=== PATIENT | female | born 1960 | race Caucasian/White ===

== ENCOUNTER 2022-07-19 00:25 | Outpatient (CLI) | payer OTHER, SELFPAY ==
--- NOTE | 2022-07-19 07:30 | DI.MAMMO_ITS ---
Exam(s) MAMMO SCREENING EXAM: MAMMO SCREENING CLINICAL HISTORY: screening TECHNIQUE: Bilateral full field digital CC and MLO mammographic images were obtained with 3D tomosyn thesis and utilizing computer aided detection (CAD). COMPARISON: Available for comparison. FINDINGS: Masses/Architectural Distortion: The lobulated nodule in the upper outer quadrant of the right breast appears stable. It has an appearance suggestive of an intraparenchymal lymph node. No suspicious m asses are seen. The tiny nodular density in the outer left breast appears stable. Microcalcifications: No suspicious pleomorphic-type are seen. Stable coarse calcification is seen in the right breast. Skin Thickening/Nipple Retraction: None. IMPRESSION: 1. No significant interval change with no specific features of malignancy noted. 2. Unless there is more urgent need, screening mammography is recommended, as per [employer] [place] [employer] guidelines. BI-RADS Category 2 - Benign Findings Breast Density - Category B - Scattered areas of fibroglandular density Breast density category C or D implies that the patient has dense breast tissue. Dense breast tissue is very common and is not abnormal but dense breast tissue can make it harder to find cancer on a ma mmogram. Also, dense breast tissue may increase their breast cancer risk. This information about the result of the mammogram report was provided to the patient to raise their awareness. Use this report when you speak with the patient about their risks for breast cancer, which includes their family hist ory. At that time, you may recommend for more screening tests (Ultrasound or MRI) as they might be us eful based on their risk. A negative radiographic report should not delay biopsy if a dominant or clinically suspicious mass is present. Up to ten percent of cancers are not identified on mammography. A negative report may reinforce clinical impression. Adenosis and dense breasts may obscure an underlying neoplasm. False positive reports average 6 to 10%. Patient will receive a letter notifying them of these results.
== END 2022-07-19 00:45 ==
LOC: DI 00:26
PROVIDERS: Visit Provider Obstetrics & Gynecology
DX: Z12.31 Encounter for screening mammogram for malignant neoplasm of breast (principal)
CPT/HCPCS: 77063; 77067

== ENCOUNTER → 2023-07-21 03:00 | Outpatient (CLI) | payer BC, SELFPAY ==
--- NOTE | 2023-07-21 07:45 | DI.MAMMO_ITS ---
Exam(s) MAMMO SCREENING EXAM: MAMMO SCREENING CLINICAL HISTORY: screening,z12.31 TECHNIQUE: Mammograms were interpreted according to the usual protocol including computer analysis w [employer] CAD system, tomosynthesis and C-view imaging. COMPARISON: 2019 through 2022 FINDINGS: The breasts are composed of mainly fatty density , Breast Density category A. No suspicious masses or suspicious microcalcifications are seen. No skin thickening or abnormal axillary lymph nodes are seen. There has been no significant change from prior exams. IMPRESSION: BI-RADS Category 1, Negative mammogram Yearly screening mammography is recommended. Breast Density - Category A, fatty density. A negative radiographic report should not delay biopsy if a dominant or clinically suspicious mass is present. Up to ten percent of cancers are not identified on mammography. A negative report may reinforce clinical impression. Adenosis and dense breasts may obscure an underlying neoplasm. False positive reports average 6 to 10%. Patient will receive a letter notifying them of these results.
== END ==
PROVIDERS: Visit Provider Obstetrics & Gynecology
DX: Z12.31 Encounter for screening mammogram for malignant neoplasm of breast (principal)
CPT/HCPCS: 77063; 77067

== ENCOUNTER 2023-10-15 14:53 | Outpatient (REF) | payer BC, SELFPAY ==
[2023-10-15 17:16] LABS: Anion Gap 9.5 mmol/L (3-11); BUN 12 mg/dL (7-18); CO2 26.5 mmol/L (21.0-32.0); Calcium 9.3 mg/dL (8.5-10.1); Chloride 105 mmol/L (98-107); Cholesterol 184 mg/dL (<200); Glucose 93 mg/dL (74-106); Potassium 4.8 mmol/L (3.5-5.1); Sodium 141 mmol/L (136-145); TSH 2.55 uIU/Ml (0.36-3.74); Triglyceride 51 mg/dL (<150)
[2023-10-15 17:53] LABS: CREATININE 0.9 mg/dL (0.55-1.02); Calculated LDL 118 mg/dL (<100); Estimated GFR 73.19 (mL/min/1.73m2); HDL Cholesterol 56 mg/dL (40-60)
== END 2023-10-15 14:54 | disposition home or self-care (01) ==
LOC: NCHCN 14:53
PROVIDERS: Visit Provider Nurse Practitioner Family
DX: E78.5 Hyperlipidemia, unspecified (principal); F31.9 Bipolar disorder, unspecified
CPT/HCPCS: 80048; 80061; 84443

== ENCOUNTER 2024-05-24 08:50 | Outpatient (REF) | payer BC, SELFPAY ==
--- NOTE | 2024-05-24 08:50 | PAPFT_PTH ---
PATIENT: Billie Apodaca LOC: [facility] U#:[id number] AGE/SX: 63/F ROOM: RE05/24/[address]: Laura Fernandez MD : 1960 BED: DIS: 05/24/2024 SPEC #: [id number] RECD: 05/24/24 13:08 STATUS: SALLIE REQ #: [id number] FRANK: 05/24/24 08:[address]: Laura Fernandez DEPT: [facility] Cytology RECD BY: Nika Olivera ENTERED: 05/24/24 13:08 SP TYPE: PAPFT OTHR DR: Unknown,Unknown Tissues: 1 - CX/ENDOCX FOR PAP SMEARS Procedures: PAP THIN PREP/[facility] Screening HPV DNA PROBE Comments: [id number] (HPV 16 & 18/45)
== END 2024-05-24 08:51 | disposition home or self-care (01) ==
LOC: LBN 08:50
PROVIDERS: Visit Provider Obstetrics & Gynecology
DX: Z12.31 Encounter for screening mammogram for malignant neoplasm of breast (principal); Z12.4 Encounter for screening for malignant neoplasm of cervix; Z84.81 Family history of carrier of genetic disease; N95.2 Postmenopausal atrophic vaginitis
CPT/HCPCS: 88142; 87624

== ENCOUNTER 2024-07-18 07:33 | Observation (INO) | payer BC, SELFPAY ==
[2024-07-18] VITALS (17 sets, daily range): BP systolic 101–136; BP diastolic 57–75; PULSE 69–85; RESP 16–18; TEMP 36.6–37.8; O2SAT 93–99
--- NOTE | 2024-07-18 07:45 | DI.CT_ITS ---
Exam(s) CT ABDOMEN PELVIS W EXAM: CT ABDOMEN PELVIS W CLINICAL HISTORY: fever, lower abdominal pain. TECHNIQUE: Imaging Protocol: Axial computed tomography images with coronal and sagittal reformatted images were created and reviewed CONTRAST MATERIAL: Intravenous: Omnipaque 350 Contrast volume:75 ml Oral: yes no COMPARISON: No exams were available for comparison FINDINGS: ABDOMEN and PELVIS: Lung Bases: No acute findings. Liver: Normal density. No suspicious mass. Gallbladder and biliary tract: Cholecystectomy. No biliary dilation. Pancreas: Normal density. No abnormal calcifications or inflammatory process. No evidence of mass. Spleen: Normal. Kidneys: Normal size, contour and axis. No radiodense stones. No obstructive uropathy. No suspicious masses seen. Adrenal glands: No masses seen. Vasculature: Abdominal aorta non-dilated. Soft tissues: Unremarkable. Bladder: Nearly empty. No gross wall thickening. No calculi.No focal mass. Bowel: Sigmoid diverticulosis. Wall thickening and inflammation in the surrounding fat consistent wi th diverticulitis. Focal area of low density in the wall of the sigmoid which could represent develo ping intramural abscess. No evidence of perforation or extra colonic abscess. No obstruction. Stacy endix normal. Peritoneal cavity: No ascites. No focal collection.No free air. Bones: Unremarkable for age. Reproductive organs: Unremarkable. Lymph nodes: No pathologically enlarged lymph nodes. IMPRESSION:: Sigmoid diverticulitis. Focal area of wall thickening which could represent developing intramural abscess. RADIATION DOSE DELIVERED: Total DLP DATA REPOSITORY: All CT scans at this facility are submitted to the National Radiology Data Registry (NRDR) Dose Index Registry (DIR) with the [employer] (ACR). RADIATION OPTIMIZATION: All CT scans at this facility use at least one of these dose optimization te chniques: automated exposure control; mA and/or kV adjustment per patient size (includes targeted exa ms where dose is matched to clinical indication); or iterative reconstruction.
--- NOTE | 2024-07-18 07:45 | DI.RAD_ITS ---
Exam(s) XR CHEST 2V PA LATERAL EXAM: XR CHEST 2V PA LATERAL CLINICAL HISTORY: cough, fever TECHNIQUE: 2D digital imaging was performed. Two views. COMPARISON: No exams were available for comparison FINDINGS: HEART: Normal size. Aorta: Not dilated. PULMONARY VASCULATURE: Normal. MEDIASTINUM: Unremarkable. LUNGS: Clear. PLEURAL SPACE: No pleural effusion or pneumothorax. BONE:Unremarkable for age. SOFT TISSUES: Unremarkable. IMPRESSION: No acute abnormality. DATA REPOSITORY: RADIATION DOSE DELIVERED:
--- NOTE | 2024-07-18 07:53 | ED.GENADUL_ITS ---
Discharge Plan Disposition Patient Disposition: Admit to [facility] Condition: Stable Discharge Details Chief Complaint: Abd Prob Clinical Impression: Diverticulitis, Intra-abdominal abscess Admit Date/Time: 07/18/24 09:29 Admit Provider: Shant Bowen Attending Provider: Shant Bowen Primary Care Provider: WALTER SINGH ED Provider: Serafin Vanegas Discharge Data Discharge Date/Time-TO BE ENTERED AT DEPARTURE: 07/18/24 10:19 HPI General Mode of arrival: ambulatory . Date/Time Provider Initiated Documentation: 07/18/24 07:34 . Limitations to Documentation: no limitations . Information obtained by: patient . History of Present Illness 63 year old F presents to the emergency department with the chief complaint of fever, abdominal pain, described as moderate, Quality is described as sharp, and is localized to the abdomen. Patient reports no radiation. Patient started experiencing this day(s) (2) and it has been intermittent. No relieving factors improve symptom(s), No exacerbating factors reported . Patient notes nausea/vomiting. Patient did receive the following treatments prior to arrival, none Related Data Home Medications ?Medication ?Instructions ?Recorded ?Confirmed lamotrigine 200 mg tablet 200 mg PO DAILY 07/02/22 07/18/24 (Lamictal) estradiol 10 mcg vaginal tablet 10 mcg vaginal DAILY #30 tabs 07/09/23 07/18/24 (Vagifem) estradiol 0.01% (0.1 mg/gram) 0.25 g vaginal DAILY #42.5 grams 08/11/23 07/18/24 vaginal cream lisinopril 10 mg tablet 10 mg PO DAILY 08/11/23 07/18/24 lorazepam 0.5 mg tablet 0.5 mg PO DAILY PRN 08/11/23 07/18/24 trazodone 50 mg tablet 50 mg PO QHS PRN 08/11/23 07/18/24 propranolol 10 mg tablet 10 mg PO BID PRN 05/24/24 07/18/24 bupropion HCl 150 mg 24 hr tablet, 150 mg PO DAILY 07/18/24 07/18/24 extended release Previous Rx's ?Medication ?Instructions ?Recorded estradiol 10 mcg vaginal tablet 10 mcg vaginal DAILY #30 tabs 07/09/23 (Vagifem) estradiol 0.01% (0.1 mg/gram) 0.25 g vaginal DAILY #42.5 grams 08/11/23 vaginal cream Allergies Allergy/AdvReac Type Severity Reaction Status Date / Time No Known Allergies Allergy Verified 05/24/24 08:13 General Stated Complaint: Abd Prob JUNIOR: 3 Review of Systems All systems reviewed & are unremarkable except as noted in HPI and below Constitutional Constitutional: Reports chills, Reports fever(s) and Denies weakness Cardiovascular Cardiovascular: Denies chest pain and Denies dyspnea Respiratory Respiratory: Denies cough and Denies dyspnea Gastrointestinal Gastrointestinal: Reports abdominal pain, Reports nausea and Reports vomiting Genitourinary Genitourinary: Denies dysuria Neurologic Neurologic: Denies weakness Exam Const General: no acute distress Orientation: alert HENMT Head: normal to inspection Ears: external ears normal General nose exam: external nose normal Mouth: moist mucous membranes Eyes General: appearance normal, both eyes and all related structures Neck Neck: normal visual inspection Resp Effort & Inspection: normal respiratory effort and able to speak in complete sentences Auscultation: clear to auscultation bilaterally Cardio Jugular venous pressure: no JVD Rate: regular rate Heart Sounds: no murmurs GI Palpation: soft and tender Skin General skin exam: no rashes or lesions noted Neuro General: patient alert and patient oriented x3 Extrem General: normal to inspection Psych Mental Status: mental status grossly normal Course Vital Signs Vital signs: Vital Signs Temperature 37.8 C H 07/18/24 07:37 Pulse 85 07/18/24 07:37 Respiratory Rate 18 07/18/24 07:37 Blood Pressure 136/75 07/18/24 07:37 Pulse Oximetry 98 07/18/24 07:37 Temperature 37.8 C H 07/18/24 07:37 Temperature Source Tympanic 07/18/24 07:37 Pulse 85 07/18/24 07:37 Respiratory Rate 18 07/18/24 07:37 Blood Pressure 136/75 07/18/24 07:37 Blood Pressure Position Supine 07/18/24 07:37 Pulse Oximetry 98 07/18/24 07:37 Oxygen Delivery Method Room Air 07/18/24 07:37 Oxygen Flow Rate 0 07/18/24 07:37 Medical Decision Making 63-year-old female states she has had 2 C-sections and a prior cholecystectomy comes in with 2 days of fevers intermittently to 101 along with abdominal pain and nausea vomiting. She denies any chest pain, does note a dry cough. No rashes. No IV drug use. She is well-appearing on exam and is noted be febrile here. She has tenderness in the left lower and right lower quadrant, no upper abdominal tenderness. Given her fever and nausea vomiting and abdominal pain concern for diverticulitis, will check CBC CMP and UA and also CT abdomen pelvis along with a chest x-ray given her cough. CT shows likely diverticulitis of the sigmoid colon but also likely 2 cm intramural abscess. Zosyn ordered. Patient hemodynamically stable. Discussed with Dr. Bowen from general surgery who will admit the patient for further management Differential Diagnosis Differential Diagnosis: Diverticulitis, colitis, influenza Imaging Data Radiologic Study: Attestation: I personally reviewed and interpreted this imaging study as follows: Imaging: CT Scan Radiologist's impression: IMPRESSION: 1. Inflammatory change adjacent to the sigmoid colon in the pelvis. Consider diverticulitis, epiploic appendagitis. Intramural abscess not excluded as described above. 2. Fluid in nondilated small and large bowel, nonspecific but suggestive of mild inflammation. 3. Additional findings as above. Quality:SDOH Health Related Social Needs: Health related social needs housing instability, house d, with risk of homelessness (Z59.811), problems related to housing/economic circumstances (Z59.89) PFSH All Active Problems (Updated 07/18/24 @ 14:45 by Serafin Vanegas MD) Intra-abdominal abscess (Acute) Diverticulitis (Chronic) Medical History Family history of BRCA gene mutation Pt has tested negative Perimenopausal atrophic vaginitis Bipolar 2 disorder Anxiety Depression Surgical History H/O section 1991 History of cholecystectomy H/O tubal ligation Family History Paternal Aunt Breast cancer Father Colon cancer Social History Smoking/Tobacco Use Status: Never Smoking risk assessment performed?: Yes Alcohol Intake: never Drug use: Never Substance use type: does not use Household members: spouse Housing: house Number of Children: 2 Education Level: college 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 Date GA/Weeks # Preg Succ Route Wgt Sex Labor Lgth Anesth esia Location Prov Complic Unknown 40 No Yes 3628.739 g Female [facility], [place] Unknown 40 No Yes 3175.147 g Male [place], [place] Delivery Date: Last Updated by: Divina Haas Born 1979 Delivery Date: Last Updated by: Divina Alvarez Born in 1989
--- OUTSIDE RECORDS SUMMARY | 2024-07-18 08:08 | XMS_ITS | Referral Summary ---
Author Organization [facility] Address [address] [place] [address] Care Team Providers Care Lathe Scalper Operator Name Role Phone Unavailable Primary Care Provider Unavailabl e Encounters Date Type Department Care Team Description 05/25/2024 Lab Requisition [facility] Pathology & Laboratory Medicine - [facility] [address] [place] [address] Laura Fernandez MD Encounter for other general examination from Last 3 Months Social History Tobacco Use Types Packs/Day Years Used Date Smoking Tobacco: Never Assessed Comments Unknown Sex and Gender Information Value Date Recorded Sex Assigned at Not on file Legal Sex Female 9:16 EST Gender Identity Not on file Sexual Orientation Not on file Plan of Treatment Not on file Procedures Procedure Name Priority Date/Time Associated Diagnosis Comments PAP TEST Today 05/24/2024 8:50 EST Encounter for other general examination HPV DNA DETECTION WITH GENOTYPING, PCR Today 05/24/2024 8:50 EST Encounter for other general examination from Last 3 Months Results * PAP TEST (05/24/2024 8:50 EST) Specimens A. Cervix and/or Endocervix , ThinPrep Imaging System with Manual Evaluation 06/02/2024 14:55 [facility] Specimen Adequacy Satisfactory for Evaluation - transformation zone component present 06/02/2024 14:55 [facility] General Categorization Negative for intraepithelial lesion or malignancy 06/02/2024 14:55 [facility] Attestation . 06/02/2024 14:55 [facility] at 1455 Clinical History See below 06/02/20 14:55 [facility] Performing Lab [facility] 06/02/2024 14:55 [facility] Scanned Images 06/02/2024 14:55 [facility] HPV High Risk type 16, PCR Negative 06/02/2024 14:55 [facility] HPV High Risk type 18, PCR Negative 06/02/2024 14:55 [facility] HPV Other High Risk Types, PCR Negative The following Other High Risk HPV types were not detected: 31,33, 35, 39, 45, 51, 52, 56, 58, 59, 66 and 68. 06/02/2024 14:55 EST [facility] Pap Test CERVIX UTERI STRUCTURE / Unknown 05/24/2024 8:50 EST 05/25/2024 9:24 EST us Laura Fernandez MD PATHOLOGY ORDERABLES Final R esult Performing Organization Address [facility]/ZIP Co de Phone Number [facility] [address] [place] [phone] * HPV DNA DETECTION WITH GENOTYPING, PCR (05/24/2024 8:50 EST) HPV High Risk type 16, PCR Negative Negative 06/02/2024 14:55 [facility] HPV High Risk type 18, PCR Negative Negative 06/02/2024 14:55 [facility] HPV other High Risk types, PCR Negative Negative 06/02/2024 14:55 [facility] Comment: The following Other High Risk HPV types were not detected: ??31,33, 35, 39, 45, 51, 52, 56, 58, 59, 66 and 68. Pap Test CERVIX UTERI STRUCTURE / Unknown 05/24/2024 8:50 EST 06/01/2024 7:54 EST Laura Fernandez MD MICROBIOLOGY - GENERAL ORDER ARI Final Result Performing Organization Address City/[facility]/ZIP Co de Phone Number [facility] [address] [place] [phone] from Last 3 Months
--- OUTSIDE RECORDS SUMMARY | 2024-07-18 08:08 | XMS_ITS | Clinical Summary ---
Author Organization [facility] Address [address] [place] [address] Care Team Providers Care Accounts Payable Or Receivable Clerk Name Role Phone Unavailable Primary Care Provider Unavailabl e Encounters Date Type Department Care Team Description 05/25/2024 Lab Requisition [facility] Pathology & Laboratory Medicine - [facility] [address] [place] [address] Laura Fernandez MD Encounter for other general examination from Last 3 Months Social History Tobacco Use Types Packs/Day Years Used Date Smoking Tobacco: Never Assessed Comments Unknown Sex and Gender Information Value Date Recorded Sex Assigned at Not on file Legal Sex Female 9:16 EST Gender Identity Not on file Sexual Orientation Not on file Plan of Treatment Health Maintenance Due Date Last Done Comments Hepatitis C Screen 1960 COVID-19 Vaccine ( season) 2024 RSV Immunization ( o r 60+ Years) (1 - 1-dose 75+ series) 2037 Procedures Procedure Name Priority Date/Time Associated Diagnosis Comments PAP TEST Today 05/24/2024 8:50 EST Encounter for other general examination HPV DNA DETECTION WITH GENOTYPING, PCR Today 05/24/2024 8:50 EST Encounter for other general examination from Last 3 Months Results * PAP TEST (05/24/2024 8:50 EST) Specimens A. Cervix and/or Endocervix , ThinPrep Imaging System with Manual Evaluation 06/02/2024 14:55 EST [facility] Specimen Adequacy Satisfactory for Evaluation - transformation zone component present 06/02/2024 14:55 EST [facility] General Categorization Negative for intraepithelial lesion or malignancy 06/02/2024 14:55 EST [facility] Attestation . 06/02/2024 14:55 EST [facility] at 1455 Clinical History See below 06/02/20 14:55 [facility] Performing Lab [facility] 06/02/2024 14:55 [facility] Scanned Images 06/02/2024 14:55 [facility] HPV High Risk type 16, PCR Negative 06/02/2024 14:55 [facility] HPV High Risk type 18, PCR Negative 06/02/2024 14:55 [facility] HPV Other High Risk Types, PCR Negative The following Other High Risk HPV types were not detected: 31,33, 35, 39, 45, 51, 52, 56, 58, 59, 66 and 68. 06/02/2024 14:55 [facility] Pap Test CERVIX UTERI STRUCTURE / Unknown 05/24/2024 8:50 EST 05/25/2024 9:24 EST us Laura Fernandez MD PATHOLOGY ORDERABLES Final R esult [facility] [address] [place] [phone] * HPV DNA DETECTION WITH GENOTYPING, PCR (05/24/2024 8:50 EST) HPV High Risk type 16, PCR Negative Negative 06/02/2024 14:55 [facility] HPV High Risk type 18, PCR Negative Negative 06/02/2024 14:55 [facility] HPV other High Risk types, PCR Negative Negative 06/02/2024 14:55 [facility] Comment: The following Other High Risk HPV types were not detected: ??31,33, 35, 39, 45, 51, 52, 56, 58, 59, 66 and 68. Pap Test CERVIX UTERI STRUCTURE / Unknown 05/24/2024 8:50 EST 06/01/2024 7:54 EST us Laura Fernandez MD MICROBIOLOGY - GENERAL ORDER ARI Final Result [facility] [address] [place] [address] from Last 3 Months
--- OUTSIDE RECORDS SUMMARY | 2024-07-18 08:08 | XMS_ITS | Encounter Summary ---
Author Organization [facility] Address [address] [place] [address] Care Team Providers Care Digital Marketing Officer Name Role Phone Unavailable Primary Care Provider Unavailabl e Encounter Details Date Type Department Care Team (Late st Contact Info) Description 05/25/2024 Lab Requisition [facility] Pathology & Laboratory Medicine - [facility] [address] [place] [address] Laura Fernandez MD [address] [place] [address] [place] [address] Encounter for other general examination Social History Tobacco Use Types Packs/Day Years Used Date Smoking Tobacco: Never Assessed Comments Unknown Sex and Gender Information Value Date Recorded Sex Assigned at Not on file Legal Sex Female 9:16 EST Gender Identity Not on file Sexual Orientation Not on file documented as of this encounter Plan of Treatment Not on file documented as of this encounter Procedures Procedure Name Priority Date/Time Associated Diagnosis Comments PAP TEST Today 05/24/2024 8:50 EST Encounter for other general examination HPV DNA DETECTION WITH GENOTYPING, PCR Today 05/24/2024 8:50 EST Encounter for other general examination documented in this encounter Results * HPV DNA DETECTION WITH GENOTYPING, PCR (05/24/2024 8:50 EST) HPV High Risk type 16, PCR Negative Negative 06/02/2024 14:55 EST [facility] HPV High Risk type 18, PCR Negative Negative 06/02/2024 14:55 EST [facility] HPV other High Risk types, PCR Negative Negative 06/02/2024 14:55 EST [facility] Comment: The following Other High Risk HPV types were not detected: ??31,33, 35, 39, 45, 51, 52, 56, 58, 59, 66 and 68. Pap Test CERVIX UTERI STRUCTURE / Unknown 05/24/2024 8:50 EST 06/01/2024 7:54 EST Laura Fernandez MD MICROBIOLOGY - GENERAL ORDER ARI Final Result [facility] [address], [place] [address] * PAP TEST (05/24/2024 8:50 EST) Specimens A. Cervix and/or Endocervix , ThinPrep Imaging System with Manual Evaluation 06/02/2024 14:55 [facility] Specimen Adequacy Satisfactory for Evaluation - transformation zone component present 06/02/2024 14:55 [facility] General Categorization Negative for intraepithelial lesion or malignancy 06/02/2024 14:55 [facility] Attestation . 06/02/2024 14:55 [facility] at 1455 Clinical History See below 06/02/20 14:55 [facility] Performing Lab [facility] 06/02/2024 14:55 [facility] Scanned Images 06/02/2024 14:55 [facility] HPV High Risk type 16, PCR Negative 06/02/2024 14:55 [facility] HPV High Risk type 18, PCR Negative 06/02/2024 14:55 [facility] HPV Other High Risk Types, PCR Negative The following Other High Risk HPV types were not detected: 31,33, 35, 39, 45, 51, 52, 56, 58, 59, 66 and 68. 06/02/2024 14:55 [facility] Pap Test CERVIX UTERI STRUCTURE / Unknown 05/24/2024 8:50 EST 05/25/2024 9:24 EST Laura Fernandez MD PATHOLOGY ORDERABLES Final R esult [facility] [address] [place] [address] documented in this encounter Visit Diagnoses Diagnosis Encounter for other general examination documented in this encounter
[2024-07-18 08:09] LABS: Abs Immature Grans 0.05 10^3/uL (0.0-0.06); Absolute Basophil Count 0.05 10^3/uL (0.0-0.2); Absolute Eosinophil Count 0.22 10^3/uL (0.0-0.7); Absolute Lymphocyte Count 0.98 10^3/uL (1.2-3.4); Absolute Neutrophil Count 9.46 10^3/uL (1.2-6.7); Basophils % 0.4 %; Eosinophils % 1.8 %; HCT 39.5 % (36.0-46.0); HGB 13.2 g/dL (11.2-15.7); Immature Grans % 0.4 %; Lymphocytes % 8.2 %; MCH 30.5 pg (27.0-33.0); MCHC 33.4 % (32.0-36.0); MCV 91 fL (80-95); MPV 9.3 fL (8.0-11.0); Neutrophils % 79.2 %; Platelet Count 282 10^3/uL (130-400); RBC 4.33 10^6/uL (3.93-5.22); RDW 11.6 % (11.7-14.6); WBC 11.95 10^3/uL (4.4-10.8)
[2024-07-18] MEDS: Ondansetron 4 MG/2 ML VIAL IVP (08:18)
[2024-07-18] MEDS: Ketorolac 15 MG/ML VIAL IVP (08:18)
[2024-07-18 08:23] LABS: COVID-19 PCR Negative (Negative); Influenza A PCR Negative (Negative); Influenza B PCR Negative (Negative); RSV PCR Negative (Negative)
[2024-07-18 08:24] LABS: Source Nasopharynx
[2024-07-18 08:24] LABS: Bilirubin Negative (Negative); Blood Negative (Negative); Clarity Cloudy (Clear); Glucose Negative (Negative); Ketones Negative (Negative); Leukocyte Esterase Negative (Negative); Nitrite Negative (Negative); Urobilinogen 0.2 mg/dL (Up to 0.2); pH 8.5 (5-8)
[2024-07-18 08:26] LABS: ALT 19 U/L (14-59); AST 14 U/L (15-37); Albumin 3.1 g/dL (3.4-5.0); Alkaline Phosphatase 105 U/L (46-116); Anion Gap 7.2 mmol/L (3-11); BUN 11 mg/dL (7-18); Bilirubin, Total 0.64 mg/dL (0.2-1.0); CO2 28.8 mmol/L (21.0-32.0); CREATININE 0.8 mg/dL (0.55-1.02); Calcium 8.5 mg/dL (8.5-10.1); Chloride 102 mmol/L (98-107); Estimated GFR 83.78 (mL/min/1.73m2); Glucose 106 mg/dL (74-106); Lipase 39 U/L (<78); Magnesium 1.9 mg/dL (1.8-2.4); Potassium 4.3 mmol/L (3.5-5.1); Sodium 138 mmol/L (136-145); Total Protein 7.4 g/dL (6.4-8.2)
[2024-07-18] MEDS: Normal Saline - Diluent 50 ML VIAL IJ (08:34)
[2024-07-18] MEDS: Omnipaque 350 MG/ML 100 ML BTL 75 ML IJ (08:35)
--- NOTE | 2024-07-18 08:54 | DI.VRAD_ITS ---
PROCEDURE INFORMATION: Exam: XR Chest Exam date and time: 07/18/2024 8:51 AM Age: 63 years old Clinical indication: Cough TECHNIQUE: Imaging protocol: Radiologic exam of the chest. Views: 2 views. COMPARISON: No relevant prior studies are available for comparison. FINDINGS: Lungs: No focal consolidation seen. Pleural spaces: No large pleural effusion seen. Heart/Mediastinum: No cardiomegaly. Bones/joints: No acute abnormality. IMPRESSION: No acute findings to explain reported symptoms. Dictated and Authenticated by: Lana Cervantes MD. Ordering:BILLY Betancourt MD
--- NOTE | 2024-07-18 09:02 | DI.VRAD_ITS ---
PROCEDURE INFORMATION: Exam: CT Abdomen And Pelvis With Contrast Exam date and time: 07/18/2024 8:35 AM Age: 63 years old Clinical indication: Other: Fever, lower abdominal pain TECHNIQUE: Imaging protocol: Computed tomography of the abdomen and pelvis with contrast. Contrast material: OMNIPAQUE 350; Contrast volume: 75 ml; Contrast route: INTRAVENOUS (IV); COMPARISON: No relevant prior studies available. FINDINGS: Diaphragm: Tiny hiatal hernia. Liver: No focal hepatic lesion identified. Gallbladder and biliary ducts: Cholecystectomy. Pancreas: No CT evidence for acute pancreatitis. Spleen: No splenomegaly. Adrenal glands: No mass. Kidneys and ureters: No hydronephrosis or evidence for pyelonephritis. Stomach and bowel: Fluid in nondilated small bowel, nonspecific. No intestinal obstruction is evident. Fluid in the colon. Colonic diverticula. There is stranding and ring-like density adjacent to the sigmoid colon in the pelvis. There is an ill-defined peripherally enhancing area of low-density in the wall of the sigmoid colon at this level measuring 2.1 cm. Intramural abscess not excluded. Appendix: No evidence of appendicitis. Intraperitoneal space: No free air. Vasculature: Atherosclerotic changes in the aorta and its branches. Mild narrowing at the origin of the superior mesenteric artery with distal reconstitution. Lymph nodes: No acute findings. Urinary bladder: No acute findings. Reproductive: Small uterine fibroid. Bones/joints: No pertinent acute abnormality seen. Soft tissues: No pertinent acute abnormality seen. IMPRESSION: 1. Inflammatory change adjacent to the sigmoid colon in the pelvis. Consider diverticulitis, epiploic appendagitis. Intramural abscess not excluded as described above. 2. Fluid in nondilated small and large bowel, nonspecific but suggestive of mild inflammation. 3. Additional findings as above. Dictated and Authenticated by: Lana Cervantes MD. Ordering:BILLY Betancourt MD
[2024-07-18] MEDS: PIPERACILLIN/TAZO 4.5 GM in Normal Saline 100 ML IVPB (09:31)
--- NOTE | 2024-07-18 09:32 | HPE_ITS ---
Date of service: 07/18/24 Time of Service: 09:32 Assessment and Plan Assessment and plan (1) Diverticulitis: Status: Chronic Assessment and plan: This all seems most consistent with acute diverticulitis. There is certainly some phlegmon over the medial side of the sigmoid colon, but I do not appreciate any discrete abscess. Certainly, there is no abscess worth draining. For now, we will start with some Zosyn. I will repeat her CBC and add a CRP on for tomorrow, but based on her previous experience, and her exam and imaging today, I am optimistic that this will respond to nonoperative management for the time being. History of Present Illness History of Present Illness Chief Complaint: Abdominal pain Narrative: Shirlene is 63 years old. She started feeling abdominal discomfort which she described as pain mostly in the midportion of her abdomen around a day and a half ago. She described it as sharp, just a bit crampy. She actually thought it may be the flu, as she was also feeling a little bit fatigued. Discomfort increased yesterday, she slept through most of the day. She had some subjective fevers. This morning, the pain increased a bit more, and was associated with a little bit of nausea so she came to the emergency department. White blood cell count was about 12,000 here. She underwent a CT scan that demonstrated sigmoid diverticulitis. She tells me she has had episodes of diverticulitis in the past, but they have always been managed as an outpatient with various antibiotic combinations. She can recall at least 2 separate episodes. She has undergone screening colonoscopies in the past. She is aware from those that she had diverticular disease. She has ever had any other colon pathology noted. Family history includes a father with colon cancer diagnosed in his 40s. Her past surgical history includes cholecystectomy, section and tubal ligation. Review of Systems Constitutional Constitutional: Reports fatigue, Reports fever(s) and Reports poor appetite Eyes Eyes: Reports system reviewed and no additional complaints, except as documented ENT Ears, Nose, Mouth, and Throat: Reports system reviewed and no additional complaints, except as documented Cardiovascular Cardiovascular: Denies chest pain and Denies dyspnea Respiratory Respiratory: Denies chest congestion, Denies cough and Denies dyspnea Gastrointestinal Gastrointestinal: Reports abdominal pain, Reports cramping, Denies diarrhea, Reports nausea and Denies vomiting Genitourinary Genitourinary: Reports system reviewed and no additional complaints, except as documented Musculoskeletal Musculoskeletal: Reports system reviewed and no additional complaints, except as documented Neurologic Neurologic: Reports system reviewed and no additional complaints, except as documented Psychiatric Psychiatric: Reports anxiety Endocrine Endocrine: Reports fatigue Hematologic/Lymphatic Hematologic/Lymphatic: Denies easy bleeding and Denies easy bruising PFSH All Active Problems (Updated 07/18/24 @ 10:30 by Shant Bowen MD) Diverticulitis (Chronic) Medical History Family history of BRCA gene mutation Pt has tested negative Perimenopausal atrophic vaginitis Bipolar 2 disorder Anxiety Depression Surgical History H/O section 1991 History of cholecystectomy H/O tubal ligation Family History Paternal Aunt Breast cancer Father Colon cancer Social History Smoking/Tobacco Use Status: Never Smoking risk assessment performed?: Yes Alcohol Intake: never Drug use: Never Substance use type: does not use Household members: spouse Housing: house Number of Children: 2 Education Level: college 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 Date GA/Weeks # Preg Succ Route Wgt Sex Labor Lgth Anesth esia Location Prov Complic Unknown 40 No Yes 8 lb Female K[place] rodr[place] Unknown 40 No Yes 7 lb Male [place], [place] Delivery Date: Last Updated by: Divina Webb Samina Born 1979 Delivery Date: Last Updated by: Divina Webb Antonio Born in 1989 Meds Allergies and Home Medications Allergies Allergy/AdvReac Type Severity Reaction Status Date / Time No Known Allergies Allergy Verified 05/24/24 08:13 Home Medications ?Medication ?Instructions ?Recorded ?Confirmed ?Type bupropion HCl 150 mg tablet,12 hr 150 mg PO DAILY 07/02/22 07/18/24 History sustained-release (Wellbutrin SR) lamotrigine 200 mg tablet 200 mg PO DAILY 07/02/22 07/18/24 History (Lamictal) estradiol 10 mcg vaginal tablet 10 mcg vaginal DAILY #30 tabs 07/09/23 07/18/24 Rx (Vagifem) estradiol 0.01% (0.1 mg/gram) 0.25 g vaginal DAILY #42.5 grams 08/11/23 07/18/24 Rx vaginal cream lisinopril 10 mg tablet 10 mg PO DAILY 08/11/23 07/18/24 History lorazepam 0.5 mg tablet 0.5 mg PO DAILY PRN 08/11/23 07/18/24 History trazodone 50 mg tablet 50 mg PO QHS PRN 08/11/23 07/18/24 History propranolol 10 mg tablet 10 mg PO BID PRN 05/24/24 07/18/24 History Exam Const General: cooperative, comfortable and no acute distress Nutritional Appearance: average body habitus and well nourished Orientation: alert, awake and oriented x3 HENMT Head: normal to inspection Eyes General: appearance normal, both eyes and all related structures Neck Neck: normal visual inspection, full ROM and no lymphadenopathy Resp Effort & Inspection: normal respiratory effort and able to speak in complete sentences Cardio Rate: regular rate Rhythm: regular rhythm Heart Sounds: S1 normal and S2 normal GI Inspection: normal to inspection and non-distended Palpation: soft, no guarding and tender (Suprapubic) Percussion: normal to percussion Auscultation: normal bowel sounds Skin General skin exam: no rashes or lesions noted Results Imaging Abdomen CT scan report/results: report reviewed and image reviewed CT scan - pelvis: report reviewed and image reviewed Labs 07/18/24 07:50 07/18/24 07:50 Labs: Laboratory Results - last 24 hr 07/18/24 07/18/24 07/18/24 07:40 07:50 08:10 WBC 11.95 H RBC 4.33 Hgb 13.2 Hct 39.5 MCV 91 MCH 30.5 MCHC 33.4 RDW 11.6 L Plt Count 282 MPV 9.3 Immature Gran % 0.4 Neutrophils % 79.2 Lymphocytes % 8.2 Monocytes % 10.0 Eosinophils % 1.8 Basophils % 0.4 Nucleated RBC % 0.0 Absolute Neutrophils 9.46 H Absolute Lymphocytes 0.98 L Absolute Monocytes 1.20 H Absolute Eosinophils 0.22 Absolute Basophils 0.05 Sodium 138 Potassium 4.3 Chloride 102 Carbon Dioxide 28.8 Anion Gap 7.2 BUN 11 Creatinine 0.8 Est GFR (CKD-EPI 2020) 83.78 Glucose 106 Calcium 8.5 Magnesium 1.9 Total Bilirubin 0.64 AST 14 L ALT 19 Alkaline Phosphatase 105 Total Protein 7.4 Albumin 3.1 L Lipase 39 Urine Color Yellow Urine Clarity Cloudy Urine pH 8.5 H Ur Specific [place] 1.020 Urine Protein Negative Urine Ketones Negative Urine Blood Negative Urine Nitrite Negative Urine Bilirubin Negative Urine Urobilinogen 0.2 Ur Leukocyte Esterase Negative Urine Glucose Negative COVID-19 Source Nasopharynx SARS-CoV-2 (PCR) Negative Influenza Type A (PCR) Negative Influenza Type B (PCR) Negative RSV (PCR) Negative Last Vital Signs Temp 100.1 F H 07/18/24 07:37 Pulse 85 07/18/24 07:37 Resp 18 07/18/24 07:37 BP 136/75 07/18/24 07:37 Pulse Ox 98 07/18/24 07:37 Time Spent Time spent with Patient: 40-54 minutes Time was spent: preparing to see the patient(eg.review tests), ordering medications,tests, procedures, indepentently interpreting results, counseling the patient and care coordination
--- NOTE | 2024-07-18 10:15 | W.PC.ACHO ---
Registration Status: Primary Language: Preferred Language: ED Information & Data Chief Complaint Abd Prob 07/18/24 07:54 Triage Note Starting Friday, sudden 07/18/24 07:37 onset of stomach ache, shivering - fever 100.6. vomiting started this morning. Medical / Surgical History (Last Updated 08/11/23 @ 09:38 by Laura Fernandez MD) Family history of BRCA gene mutation Perimenopausal atrophic vaginitis Bipolar 2 disorder Anxiety Depression (Last Updated 07/02/22 @ 10:17 by Divina Webb RN) H/O section History of cholecystectomy H/O tubal ligation Most Recent Vital Signs Temperature 100.1 F H 07/18/24 07:37 Temperature Source Tympanic 07/18/24 07:37 Pulse 71 07/18/24 10:00 Respiratory Rate 18 07/18/24 07:37 Blood Pressure 128/59 L 07/18/24 10:00 Blood Pressure Mean 84 07/18/24 10:00 Blood Pressure Position Supine 07/18/24 07:37 Pulse Oximetry 95 07/18/24 10:10 Oxygen Delivery Method Room Air 07/18/24 07:37 Oxygen Flow Rate 0 07/18/24 07:37 Allergies No Known Allergies Allergy (Verified 05/24/24 08:13) Precautions Isolation Standard precaution 07/18/24 07:42 Active Medications Generic Name Dose Route Start Last Admin Trade Name Freq PRN Reason Stop Dose Admin Iohexol 75 ml 07/18/24 08:45 07/18/24 08:35 Omnipaque 350 Mg/Ml 100 Ml Btl IJ 08/17/24 23:59 75 ml DIRECTED IONA Administration Sodium Chloride 50 ml 07/18/24 08:45 07/18/24 08:34 Normal Saline - Diluent 50 Ml Vial IJ 50 ml .FOR DI USE IONA Administration IV IV Catheter Type [Right Peripheral IV Antecubital] IV Catheter Type [Right Peripheral IV Antecubital] IV Catheter Gauge [Right 20 Antecubital] IV Catheter Gauge [Right 20 Antecubital] Diagnostics 07/18/24 07/18/24 07/18/24 Range/Units 08:10 07:50 07:40 WBC 11.95 H (4.4-10.8) 10^3/uL RBC 4.33 (3.93-5.22) 10^6/uL Hgb 13.2 (11.2-15.7) g/dL Hct 39.5 (36.0-46.0) % MCV 91 (80-95) fL MCH 30.5 (27.0-33.0) pg MCHC 33.4 (32.0-36.0) % RDW 11.6 L (11.7-14.6) % Plt Count 282 (130-400) 10^3/uL MPV 9.3 (8.0-11.0) fL Immature Gran % 0.4 % Neutrophils % 79.2 % Lymphocytes % 8.2 % Monocytes % 10.0 % Eosinophils % 1.8 % Basophils % 0.4 % Nucleated RBC % 0.0 (0.0-0.3) % Absolute Neutrophils 9.46 H (1.2-6.7) 10^3/uL Absolute Lymphocytes 0.98 L (1.2-3.4) 10^3/uL Absolute Monocytes 1.20 H (0.1-0.8) 10^3/uL Absolute Eosinophils 0.22 (0.0-0.7) 10^3/uL Absolute Basophils 0.05 (0.0-0.2) 10^3/uL Sodium 138 (136-145) mmol/L Potassium 4.3 (3.5-5.1) mmol/L Chloride 102 (98-107) mmol/L Carbon Dioxide 28.8 (21.0-32.0) mmol/L Anion Gap 7.2 (3-11) mmol/L BUN 11 (7-18) mg/dL Creatinine 0.8 (0.55-1.02) mg/dL Est GFR (CKD-EPI 2020) 83.78 (mL/min/1.73m2) Glucose 106 (74-106) mg/dL Calcium 8.5 (8.5-10.1) mg/dL Magnesium 1.9 (1.8-2.4) mg/dL Total Bilirubin 0.64 (0.2-1.0) mg/dL AST 14 L (15-37) U/L ALT 19 (14-59) U/L Alkaline Phosphatase 105 (46-116) U/L Total Protein 7.4 (6.4-8.2) g/dL Albumin 3.1 L (3.4-5.0) g/dL Lipase 39 (<78) U/L Urine Color Yellow (Yellow) Urine Clarity Cloudy (Clear) Urine pH 8.5 H (5-8) Ur Specific [place] 1.020 (1.005-1.025) Urine Protein Negative (Neg-Trace) mg/dL Urine Ketones Negative (Negative) mg/dL Urine Blood Negative (Negative) Urine Nitrite Negative (Negative) Urine Bilirubin Negative (Negative) Urine Urobilinogen 0.2 (Up to 0.2) mg/dL Ur Leukocyte Esterase Negative (Negative) Urine Glucose Negative (Negative) mg/dL COVID-19 Source Nasopharynx SARS-CoV-2 (PCR) Negative (Negative) Influenza Type A (PCR) Negative (Negative) Influenza Type B (PCR) Negative (Negative) RSV (PCR) Negative (Negative) 07/18/24 09:28 Blood Culture - Pending Blood 07/18/24 09:20 Blood Culture - Pending Blood Intake and Output - 24 Hour Total 07/18/24 07:33 thru 07/18/24 10:02 Intake Total 110 Balance 110 Weight 175 lb Intake: IV 110 Falls Risk Assessment History of Falls No History 07/18/24 07:42 Fall Total Score 0 07/18/24 07:42 Level of Risk Standard/Low Risk 07/18/24 07:42 v v v v v v v v v Sending and/or Receiving Nurses: Please use comment section below to note any information pertinent to the patient hand-off not included above. Information / Comments: abx and fluids abcess will recover on its on per DR. Bowen Pip/beth completed toradol and zofran 20g rac blood cultures Report received from: Krystle Sullivan [employer]
--- OUTSIDE RECORDS SUMMARY | 2024-07-18 10:23 | XMS_ITS | Clinical Summary ---
Author Organization [facility] Address [address] [place] [address] Care Team Providers Care Lamp Inspector Name Role Phone Unavailable Primary Care Provider Unavailabl e Encounters Date Type Department Care Team Description 05/25/2024 Lab Requisition [facility] Pathology & Laboratory Medicine - [facility] [address] [place] [address] Laura Fernandez MD Encounter for other general [...] System with Manual Evaluation 06/02/2024 14:55 EST [facility] Specimen Adequacy Satisfactory for Evaluation - transformation zone component present 06/02/2024 14:55 EST [facility] General Categorization Negative for intraepithelial lesion or malignancy 06/02/2024 14:55 EST [facility] Attestation . 06/02/2024 14:55 EST [facility] at 1455 Clinical History See below 06/02/20 14:55 [facility] Performing Lab [facility] 06/02/2024 14:55 [facility] Scanned Images 06/02/2024 14:55 [facility] HPV High Risk type 16, PCR Negative 06/02/2024 14:55 [facility] HPV High Risk type 18, PCR Negative 06/02/2024 14:55 [facility] HPV Other High Risk Types, PCR Negative The following Other High Risk HPV types were not detected: 31,33, 35, 39, 45, 51, 52, 56, 58, 59, 66 and 68. 06/02/2024 14:55 [facility] Pap Test CERVIX UTERI STRUCTURE / Unknown 05/24/2024 8:50 EST 05/25/2024 9:24 EST us Laura Fernandez MD PATHOLOGY ORDERABLES Final R esult [facility] [address] [place] [id number] * HPV DNA DETECTION WITH GENOTYPING, PCR (05/24/2024 8:50 EST) HPV High Risk type 16, PCR Negative Negative 06/02/2024 14:55 [facility] HPV High Risk type 18, PCR Negative Negative 06/02/2024 14:55 [facility] HPV other High Risk types, PCR Negative Negative 06/02/2024 14:55 [facility] Comment: The following Other High Risk HPV types were not detected: ??31,33, 35, 39, 45, 51, 52, 56, 58, 59, 66 and 68. Pap Test CERVIX UTERI STRUCTURE / Unknown 05/24/2024 8:50 EST 06/01/2024 7:54 EST us Laura Fernandez MD MICROBIOLOGY - GENERAL ORDER ARI Final Result [facility] [address] [place] [address] from Last 3 Months
--- OUTSIDE RECORDS SUMMARY | 2024-07-18 10:23 | XMS_ITS | Encounter Summary ---
Author Organization [facility] Address [address] [place] [address] Care Team Providers Care Personalization Specialist Name Role Phone Unavailable Primary Care Provider Unavailabl e Encounter Details Date Type Department Care Team (Late st Contact Info) Description 05/25/2024 Lab Requisition [facility] - [facility] [address] [place] [address] Laura Fernandez MD [address] [place] [address] [place] [address] Encounter for other general examination [...] 16, PCR Negative Negative 06/02/2024 14:55 EST [facility] HPV High Risk type 18, PCR Negative Negative 06/02/2024 14:55 EST [facility] HPV other High Risk types, PCR Negative Negative 06/02/2024 14:55 EST [facility] Comment: The following Other High Risk HPV types were not detected: ??31,33, 35, 39, 45, 51, 52, 56, 58, 59, 66 and 68. Pap Test CERVIX UTERI STRUCTURE / Unknown 05/24/2024 8:50 EST 06/01/2024 7:54 EST Laura Fernandez MD MICROBIOLOGY - GENERAL ORDER ARI Final Result [facility] [address], [place] [id number] * PAP TEST (05/24/2024 8:50 EST) Specimens A. Cervix and/or Endocervix , ThinPrep Imaging System with Manual Evaluation 06/02/2024 14:55 [facility] Specimen Adequacy Satisfactory for Evaluation - transformation zone component present 06/02/2024 14:55 [facility] General Categorization Negative for intraepithelial lesion or malignancy 06/02/2024 14:55 [facility] Attestation . 06/02/2024 14:55 [facility] at 1455 Clinical History See below 06/02/20 14:55 [facility] Performing Lab [facility] 06/02/2024 14:55 [facility] Scanned Images 06/02/2024 14:55 [facility] HPV High Risk type 16, PCR Negative 06/02/2024 14:55 [facility] HPV High Risk type 18, PCR Negative 06/02/2024 14:55 [facility] HPV Other High Risk Types, PCR Negative The following Other High Risk HPV types were not detected: 31,33, 35, 39, 45, 51, 52, 56, 58, 59, 66 and 68. 06/02/2024 14:55 [facility] Pap Test CERVIX UTERI STRUCTURE / Unknown 05/24/2024 8:50 EST 05/25/2024 9:24 EST Laura Fernandez MD PATHOLOGY ORDERABLES Final R esult [facility] [address] [place] [address] documented in this encounter Visit Diagnoses Diagnosis Encounter for other general examination documented in this encounter
--- OUTSIDE RECORDS SUMMARY | 2024-07-18 10:23 | XMS_ITS | Referral Summary ---
Author Organization [facility] Address [address] [place] [address] Care Team Providers Care [employer] Operator [employer] Name Role Phone Unavailable Primary Care Provider Unavailabl e Encounters Date Type Department Care Team Description 05/25/2024 Lab Requisition [facility] Pathology & Laboratory Medicine - [facility] [address] [place] [address] Laura Fernandez MD Encounter for other general [...] Imaging System with Manual Evaluation 06/02/2024 14:55 [facility] Specimen Adequacy Satisfactory for Evaluation - transformation zone component present 06/02/2024 14:55 [facility] General Categorization Negative for intraepithelial lesion or malignancy 06/02/2024 14:55 [facility] Attestation . 06/02/2024 14:55 [facility] at 1455 Clinical History See below 06/02/20 14:55 [facility] Performing Lab [facility] 06/02/2024 14:55 [facility] Scanned Images 06/02/2024 14:55 [facility] HPV High Risk type 16, PCR Negative 06/02/2024 14:55 [facility] HPV High Risk type 18, PCR Negative 06/02/2024 14:55 [facility] HPV Other High Risk Types, PCR Negative The following Other High Risk HPV types were not detected: 31,33, 35, 39, 45, 51, 52, 56, 58, 59, 66 and 68. 06/02/2024 14:[address] [facility] Pap Test CERVIX UTERI STRUCTURE / Unknown 05/24/2024 8:50 EST 05/25/2024 9:24 EST us Laura Fernandez MD PATHOLOGY ORDERABLES Final R esult Performing Organization Address [facility]/ZIP Co de Phone Number [facility] [address] [place] [phone] * HPV DNA DETECTION WITH GENOTYPING, PCR (05/24/2024 8:50 EST) HPV High Risk type 16, PCR Negative Negative 06/02/2024 14:55 [facility] HPV High Risk type 18, PCR Negative Negative 06/02/2024 14:55 [facility] HPV other High Risk types, PCR Negative Negative 06/02/2024 14:55 [facility] Comment: The following Other High Risk HPV types were not detected: ??31,33, 35, 39, 45, 51, 52, 56, 58, 59, 66 and 68. Pap Test CERVIX UTERI STRUCTURE / Unknown 05/24/2024 8:50 EST 06/01/2024 7:54 EST Laura Fernandez MD MICROBIOLOGY - GENERAL ORDER ARI Final Result Performing Organization Address City/[facility]/ZIP Co de Phone Number [facility] [address] [place] [phone] from Last 3 Months
[2024-07-18] MEDS: Acetaminophen 500 MG TAB 1000 MG PO ×2 (11:32→20:30)
[2024-07-18] MEDS: traMADol 50 MG TAB PO ×2 (11:34→20:30)
[2024-07-18] MEDS: Lactated Ringers 1,000 ML 75 ML IV (11:34)
--- NOTE | 2024-07-18 12:54 | PHA.REVIEW2 ---
Pharmacy Admission Review Admission Clinical Review Admission Pharmacy Review: No Known Allergies Allergy (Verified 05/24/24 08:13) Resuscitation Status Full Code Height 5 ft 2 in Weight 79.917 kg Pharmacy Admission Review Renal Dosing Renal Dosing: BUN 11 mg/dL (7-18) 07/18/24 07:50 Creatinine 0.8 mg/dL (0.55-1.02) 07/18/24 07:50 Medications needing adjustments: Reviewed (CrCl 57.85 mL/min) List of meds needing interventions: Current medications are okay Anticoagulation Anticoagulation: Hgb 13.2 g/dL (11.2-15.7) 07/18/24 07:50 Hct 39.5 % (36.0-46.0) 07/18/24 07:50 Plt Count 282 10^3/uL (130-400) 07/18/24 07:50 Creatinine 0.8 mg/dL (0.55-1.02) 07/18/24 07:50 DVT Prophylaxis: Reviewed Medications: Enoxaparin (40mg daily) Opiate Usage Evaluate Pain Scale/Pains Meds: Reviewed (hydromorphone 1mg IVP q4h PRN - no doses given) Scheduled Bowel Reg ordered if on Opiates?: No Relevant Labs Relevant Labs: Sodium 138 mmol/L (136-145) 07/18/24 07:50 Potassium 4.3 mmol/L (3.5-5.1) 07/18/24 07:50 Chloride 102 mmol/L (98-107) 07/18/24 07:50 Magnesium 1.9 mg/dL (1.8-2.4) 07/18/24 07:50 Electrolytes, C-Reactive P, ESR: Reviewed Cardiac Review BP, HR, EF%: Reviewed (VS WNL) List meds needing interventions: Has order for lisinopril 10mg daily and propranolol 10mg BID PRN (anxiety) QTc Review QTc: Reviewed (No EKG on file) IV to PO Switch IV Medications: Reviewed (hydromorphone, ondanseron and Zosyn) Home Meds Home Med List reviewed: Intervened Relevent Home Meds Not ordered & why?: estradiol cream and estradiol vaginal tablet Changed bupropion on home med list from SR to XL based on fill history. Changed order as well. Current Meds Current Medication Order Review: Reviewed Pharmacy Antibiotic Review Relevant Labs: WBC 11.95 10^3/uL (4.4-10.8) H 07/18/24 07:50 Temperature 37.4 C Temperature 37.8 C Pharmacy Antibiotic Activity: C/S review and Reviewed, no change Comments: Patient is on Zosyn 3.375g q6h, day 1, for diverticulitis. Blood cultures pending.
[2024-07-18] MEDS: Normal Saline Flush 10 ML SYR IVP ×2 (15:20→20:31)
[2024-07-18] MEDS: PIPERACILLIN/TAZO 3.375 GM in Normal Saline 50 ML IVPB ×2 (15:20→21:40)
[2024-07-18] MEDS: traZODone 50 MG TAB PO (20:30)
[2024-07-18] MEDS: Lisinopril 10 MG TAB PO (20:30)
[2024-07-18] MEDS: Enoxaparin 40 MG/0.4 ML SYR SC (20:31)
[2024-07-19] MEDS: Lactated Ringers 1,000 ML 75 ML IV ×2 (01:30→18:13)
[2024-07-19] MEDS: Acetaminophen 500 MG TAB 1000 MG PO ×3 (04:34→19:33)
[2024-07-19] MEDS: Normal Saline Flush 10 ML SYR IVP ×2 (04:34→19:33)
[2024-07-19] MEDS: PIPERACILLIN/TAZO 3.375 GM in Normal Saline 50 ML IVPB (04:34)
[2024-07-19 06:16] LABS: Abs Immature Grans 0.02 10^3/uL (0.0-0.06); Absolute Basophil Count 0.03 10^3/uL (0.0-0.2); Absolute Eosinophil Count 0.37 10^3/uL (0.0-0.7); Absolute Lymphocyte Count 1.32 10^3/uL (1.2-3.4); Absolute Monocyte Count 0.69 10^3/uL (0.1-0.8); Absolute Neutrophil Count 3.92 10^3/uL (1.2-6.7); Basophils % 0.5 %; Eosinophils % 5.8 %; HCT 34.2 % (36.0-46.0); HGB 11.5 g/dL (11.2-15.7); Immature Grans % 0.3 %; Lymphocytes % 20.8 %; MCH 30.9 pg (27.0-33.0); MCHC 33.6 % (32.0-36.0); MCV 92 fL (80-95); MPV 9.3 fL (8.0-11.0); Monocytes % 10.9 %; Neutrophils % 61.7 %; Platelet Count 242 10^3/uL (130-400); RBC 3.72 10^6/uL (3.93-5.22); RDW 11.6 % (11.7-14.6); RDW-SD 39.6 fL; WBC 6.35 10^3/uL (4.4-10.8)
[2024-07-19 06:29] LABS: BUN 13 mg/dL (7-18); CREATININE 0.9 mg/dL (0.55-1.02); Calcium 8.4 mg/dL (8.5-10.1); Chloride 106 mmol/L (98-107); Estimated GFR 72.73 (mL/min/1.73m2); Glucose 83 mg/dL (74-106); Potassium 4.3 mmol/L (3.5-5.1); Sodium 140 mmol/L (136-145)
[2024-07-19 07:31] VITALS: BP 112/64; PULSE 58; RESP 18; TEMP 36.6; O2SAT 94
[2024-07-19] MEDS: lamoTRIgine 100 MG TAB 200 MG PO (08:16)
[2024-07-19] MEDS: buPROPion-XL 150 MG TABCR PO (08:16)
--- NOTE | 2024-07-19 08:38 | INITIAL_ITS ---
Date of service: 07/19/24 Time of Service: 08:38 Care Management Initial Assmt Initial Assessment Reason for Hospitalization: diverticulitis Functional Status/Living Situation Patient Presentation: Billie was lying in bed visiting with her Moses when CM met with her. She was pleasant in interaction but appeared uncomfortable. At that time her pain was manageable however she was complaining of nausea. She has been advanced to a full liquid diet but reported that she thought she would go easy at lunchtime. Billie lives in [place] with her in a single family home. She has 2 children of her own; she has a daughter who is a nurse practitioner in [facility] at an Urgent Care and a son who lives in [place]. Moses has another son in [place]. Billie is independent at baseline. 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 She is independent at baseline and does not receive any community services. Town of Residence: [place] Resides with: Spouse ( Moses) Significant Other/Family: Out of area (step son in [place]) Natural Supports: and children Employment Status: Employed Instrumental Activities of Daily Living (ADLs): Independent Medications Medication Management: No Issues/Barriers identified Physical Functioning/Mobility Assistive Device: none Advance Directives Advance Directives: Do you have an Advance Directive: Y 08/11/23 09:02 AD On File at [facility]: N 07/14/23 15:50 Date Asked 07/18/24 07/18/24 09:41 AD Date Reviewed COLST On File at [facility] COLST Date Scanned Code Status Resuscitation Status Full Code Insurance Coverage/Financial Issues Insurance: / Care Team Visit Care Team Role Provider Type WALTER SINGH NP Primary Care Provider NON-[facility] STAFF PHYSICIAN Serafin Vanegas MD Emergency Provider [facility] STAFF PHYSICIAN Shant Bowen MD Admit Provider [facility] STAFF PHYSICIAN Attending Provider Discharge Potential Discharge Needs: PCP F/U Appt and Surgical F/U Appt Anticipated Barriers to Discharge: None Identified Patient/Family Education Needs: Review discharge instructions, discuss Ask Me Three Transportation: Private vehicle Plan: Anticipate Billie will be discharged home with no new services when medically cleared. She will follow up with her PCP and plan of care and transport with family. CM will follow and continue to assess for discharge needs. Social Determinants of Health Screening Social Determinants of Health last assessed: 07/19/24 Will the Patient Participate in the Screening?: Yes Do you worry about having a steady place to live?: yes What is your living situation today?: I have housing today, but am worried about losing it Problems where you live: no known problems In the past 12 months, have you had to go without electric, gas, oil or water in your home?: no Have you or anyone in your house had to go without enough food to eat?: no Has lack of transportation kept you from medical appointments or from doing things needed for daily living?: no Has anyone in your life made you feel unsafe or unsupported?: no How hard is it for you to pay for the very basics like food, housing, medical care, and heating? Would you say it is:: Very hard Do you want help finding or keeping work or a job?: I do not need or want help If for any reason you need help with day-to-day activities such as bathing, preparing meals, shopping, managing finances, etc., do you get the help you need?: I don?t need any help How often do you feel lonely or isolated from those around you?: Never Do you speak a language other than Sinhala at home?: No Does the patient want assistance with any of the above?: No Health Related Social Needs Health related social needs: housing instability, housed, with risk of homelessness (Z59.811) and problems related to housing/economic circumstances (Z59.89) PFSH All Active Problems (Updated 07/18/24 @ 14:45 by Serafin Vanegas MD) Intra-abdominal abscess (Acute) Diverticulitis (Chronic) Medical History Family history of BRCA gene mutation Pt has tested negative Perimenopausal atrophic vaginitis Bipolar 2 disorder Anxiety Depression Surgical History H/O section 1991 History of cholecystectomy H/O tubal ligation Family History Paternal Aunt Breast cancer Father Colon cancer Social History Smoking/Tobacco Use Status: Never Smoking risk assessment performed?: Yes Alcohol Intake: never Drug use: Never Substance use type: does not use Household members: spouse Housing: house Number of Children: 2 Education Level: college 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 Date GA/Weeks # Preg Succ Route Wgt Sex Labor Lgth Anesth esia Location Prov Complic Unknown 40 No Yes 3628.739 g Female [facility], [place] Unknown 40 No Yes 3175.147 g Male [place], [place] Delivery Date: Last Updated by: Divina Haas Born 1979 Delivery Date: Last Updated by: Divina Alvarez Born in 1989
[2024-07-19] MEDS: diphenhydrAMINE 50 MG/ML VIAL 25 MG IVP (09:07)
[2024-07-19] MEDS: ERTAPENEM 1 GM in Normal Saline 50 ML IVPB (09:30)
--- NOTE | 2024-07-19 09:56 | PGE_ITS ---
Date of Service Date of service: 07/19/24 Time of Service: 17:08 Assessment and Plan Assessment and plan (1) Diverticulitis: Status: Chronic Assessment and plan: Patient had a reaction to Zosyn has local hives and itching. No anaphlaxis. . Antibiotic is switched to Invanz. P.o. Benadryl and hydrocortisone cream She continues to have minimal appetite and feels nauseated and bloated. She has been up walking around. We did discuss to continue just with sipping on the aleida yunior and limit p.o. intake until she feels hungry. Again encouraged her to walk around and this this will help to stimulate her bowels. DVT and GI prophylaxis Supportive care Labs reviewed today. Monitor for signs of sepsis and peritonitis and progression of disease. (2) Intra-abdominal abscess: Status: Acute (3) Bipolar 2 disorder: Subjective Subjective Interval history since last seen: Patient is seen and examined: they are doing well. THey have : no headaches. No CP or SOB. no productive cough. no dysuria. no leg pain or swelling. She did have an allergic reaction to the Zosyn. She did get rash in her axilla that was fairly itchy. She did receive IV Benadryl and it did not resolve. We switched her to Invanz. She did note after her eating full liquids this morning she did feel full and bloated and nauseous. I did discuss with her that if she is still feeling that way at lunchtime then continue with clear liquids or do not eat at all. She is passing gas but she has not moved her bowels. She is walking some Exam Narrative Exam Narrative: PHYSICAL EXAM GENERAL APPEARANCE: Alert, healthy appearance, oriented, x 3,? in no acute distress HYDRATION: Well hydrated HEAD, EYES, EARS, NECK, THROAT: Head is normocephalic, pupils equal, round, reactive to light and accommodation, ocular movement intact, sclera clear and no jaundice. ?Dentition intact. LUNGS: normal respiration/normal chest excursion. ?Clear to auscultation bilaterally. ?No wheeze. ?HEART: Regular rate and rhythm. no murmurs EXTREMITY: No edema or cyanosis.? no leg pain, redness, swelling.? Patient has localized hives on the flexor surfaces of her extremities bilaterally upper and lower. They do not seem to be spreading. She has some mild improvement since we stopped the Zosyn and started the Benadryl. She still finds the area is incredibly pruritic. ABDOMEN: She has local tenderness in the left lower quadrant. She does not have diffuse peritonitis. She does have bowel sounds particularly in the right side of the abdomen. Objective Last Vital Signs Temp 36.6 C 07/19/24 07:31 Pulse 58 L 07/19/24 07:31 Resp 18 07/19/24 07:31 BP 112/64 07/19/24 07:31 Pulse Ox 94 07/19/24 07:31 Laboratory Results - last 24 hr 07/19/24 06:09 WBC 6.35 RBC 3.72 L Hgb 11.5 Hct 34.2 L MCV 92 MCH 30.9 MCHC 33.6 RDW 11.6 L Plt Count 242 MPV 9.3 Immature Gran % 0.3 Neutrophils % 61.7 Lymphocytes % 20.8 Monocytes % 10.9 Eosinophils % 5.8 Basophils % 0.5 Nucleated RBC % 0.0 Absolute Neutrophils 3.92 Absolute Lymphocytes 1.32 Absolute Monocytes 0.69 Absolute Eosinophils 0.37 Absolute Basophils 0.03 Sodium 140 Potassium 4.3 Chloride 106 Carbon Dioxide 30.0 Anion Gap 4.0 BUN 13 Creatinine 0.9 Est GFR (CKD-EPI 2020) 72.73 Glucose 83 Calcium 8.4 L Time Spent with Patient Time Spent with Patient: 35-49 minutes Time was spent: preparing to see the patient(eg.review tests), obtaining and/or reviewing separately otained hiistory, ordering medications,tests, procedures, referring, communicating with other health critical care registered nurse, indepentently interpreting results, counseling the patient, care coordination and other
[2024-07-19 15:33] VITALS: BP 117/65; PULSE 67; RESP 16; TEMP 37.6; O2SAT 98
[2024-07-19] MEDS: diphenhydrAMINE 25 MG CAP PO (17:16)
[2024-07-19] MEDS: Lisinopril 10 MG TAB PO (19:33)
[2024-07-19] MEDS: Enoxaparin 40 MG/0.4 ML SYR SC (19:33)
[2024-07-19] MEDS: traZODone 50 MG TAB PO (20:28)
[2024-07-20 00:15] VITALS: BP 143/80; PULSE 69; RESP 16; TEMP 36.6; O2SAT 94
[2024-07-20] MEDS: Acetaminophen 500 MG TAB 1000 MG PO ×3 (03:57→20:10)
[2024-07-20 07:34] VITALS: BP 148/85; PULSE 74; RESP 16; TEMP 36.3; O2SAT 95
[2024-07-20] MEDS: Lactobacillus Acidophilus CAP 1 CAP PO (08:06)
[2024-07-20] MEDS: lamoTRIgine 100 MG TAB 200 MG PO (08:06)
[2024-07-20] MEDS: buPROPion-XL 150 MG TABCR PO (08:07)
--- NOTE | 2024-07-20 08:23 | W.PM.PROGNOT ---
Date of Service Date of service: 07/20/24 Time of Service: 08:24 Assessment and Plan Assessment and plan (1) Diverticulitis: Status: Chronic Assessment and plan: Continue Invanz Appetite continues to be low and is associated with abdominal soreness and bloating. Continue as tolerated. Encouraged/discussed ensuring hydration and if possible protein options such as boost. Continue ambulation and activity as tolerated. DVT and GI prophylaxis Supportive care (2) Intra-abdominal abscess: Status: Acute (3) Bipolar 2 disorder: Subjective Subjective Interval history since last seen: Arrive with Billie resting in bed. She states that she continues to not have an appetite. She feels that she could potentially go home, however she does not feel like she can increase her PO intake yet. Exam Const General: cooperative, healthy appearing and comfortable Orientation: alert and oriented x3 Resp Effort & Inspection: normal respiratory effort, no audible wheezes and no cough GI Inspection: normal to inspection Palpation: soft and tender Objective Last Vital Signs Temp 36.3 C L 07/20/24 07:34 Pulse 74 07/20/24 07:34 Resp 16 07/20/24 07:34 BP 148/85 H 07/20/24 07:34 Pulse Ox 95 07/20/24 07:34 Time Spent with Patient Time Spent with Patient: <25 minutes Time was spent: preparing to see the patient(eg.review tests), obtaining and/or reviewing separately otained hiistory and counseling the patient
[2024-07-20] MEDS: Lactated Ringers 1,000 ML 75 ML IV (08:33)
[2024-07-20] MEDS: ERTAPENEM 1 GM in Normal Saline 50 ML IVPB (09:12)
[2024-07-20] MEDS: Normal Saline Flush 10 ML SYR IVP ×3 (09:16→21:05)
--- NOTE | 2024-07-20 09:16 | PDOC.CMPRO ---
Date of service: 07/20/24 Time of Service: 09:16 Care Management Progress Note Progress Note Text Progress Note Text: Billie was sitting up in bed when CM met with her. She was pleasant in manner and engaged well with CM. Billie reported that she continues to have no appetite. She has been eating a full liquid diet but in small amounts and states that nothing tastes good. There was some discussion about a possible discharge today however she is not sure if she is ready. She met with Sofi from [facility] this morning but has not seen the surgeon yet. She stated that she is fine either way. She wants to ensure that she is well enough to continue to improve after discharge. She understands that she needs to continue to get as much nutrition as possible and has been encouraged to drink the supplements towards that end.Billie's pain seems well controlled and she has not required pain medication (other than the scheduled Tylenol) since Friday. Discharge Potential Discharge Needs: Surgical F/U Appt Anticipated Barriers to Discharge: None Identified Patient/Family Education Needs: Review discharge instructions, discuss Ask Me Three Transportation: Private vehicle Plan: Anticipate Billie will be discharged home with no new services when medically cleared. She will follow up with her PCP and plan of care and transport with family. CM will follow and continue to assess for discharge needs. Social Determinants of Health Screening Social Determinants of Health last assessed: 07/20/24 Will the Patient Participate in the Screening?: Yes Do you worry about having a steady place to live?: yes What is your living situation today?: I have housing today, but am worried about losing it Problems where you live: no known problems In the past 12 months, have you had to go without electric, gas, oil or water in your home?: no Have you or anyone in your house had to go without enough food to eat?: no Has lack of transportation kept you from medical appointments or from doing things needed for daily living?: no Has anyone in your life made you feel unsafe or unsupported?: no How hard is it for you to pay for the very basics like food, housing, medical care, and heating? Would you say it is:: Very hard Do you want help finding or keeping work or a job?: I do not need or want help If for any reason you need help with day-to-day activities such as bathing, preparing meals, shopping, managing finances, etc., do you get the help you need?: I don?t need any help How often do you feel lonely or isolated from those around you?: Never Do you speak a language other than Mongolian at home?: No Does the patient want assistance with any of the above?: No Health Related Social Needs Health related social needs: housing instability, housed, with risk of homelessness (Z59.811) and problems related to housing/economic circumstances (Z59.89)
--- NOTE | 2024-07-20 15:30 | CHAPLAIN ---
Billie was working on her laptop when I visited. 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 Her daughter and son live in [facility]. She said her will be into visit later today. Billie was raised in the [place] in a religiously conservative family and most of her family members are not in agreement with her political and hinduism views which has caused a strain on their relationships. Billie expects to go home tomorrow and will be scheduled for surgery later. She said she has received good care here.
[2024-07-20 15:35] VITALS: BP 133/82; PULSE 74; RESP 16; TEMP 37; O2SAT 97
[2024-07-20] MEDS: diphenhydrAMINE 25 MG CAP PO (17:04)
[2024-07-20] MEDS: CIPROFLOXACIN 400 MG/200 ML BAG 200 MG IVPB (17:20)
--- NOTE | 2024-07-20 17:53 | PGE_ITS ---
Date of Service Date of service: 07/20/24 Time of Service: 17:53 Assessment and Plan Assessment and plan (1) Diverticulitis: Status: Chronic Assessment and plan: iBllie continues to improve with intravenous antibiotics for her diverticulitis. I will advance her diet today, but I told her it is fine to just stick with liquids until her appetite starts to improve. Will stop her intravenous fluids as she seems to be maintaining an adequate balance on her own. I am also going to switch her over to Cipro and Flagyl anticipating a short duration of outpatient therapy that we can hopefully start with discharge tomorrow. Subjective Subjective Interval history since last seen: Kiana has done well after switching her antibiotics over to Invanz, with no more evidence of rash or any allergic site side effects. Her vital signs all remained within normal limits, and she is tolerating some more liquids today although her appetite still remains fairly low. She says her abdominal pain is improving. She did have a normal bowel movement. Exam GI Other: Abdomen remains soft, and seems to be less tender in the suprapubic region. Objective Last Vital Signs Temp 98.6 F 07/20/24 15:35 Pulse 74 07/20/24 15:35 Resp 16 07/20/24 15:35 BP 133/82 07/20/24 15:35 Pulse Ox 97 07/20/24 15:35 Time Spent with Patient Time Spent with Patient: 25-34 minutes Time was spent: preparing to see the patient(eg.review tests), referring, communicating with other health palliative care nurse practitioner, indepentently interpreting results and counseling the patient
[2024-07-20] MEDS: metroNIDAZOLE 500 MG/100 ML BAG 100 MG IVPB (18:32)
[2024-07-20 19:52] VITALS: BP 141/82; PULSE 72; RESP 15; TEMP 36.7; O2SAT 96
[2024-07-20] MEDS: Lisinopril 10 MG TAB PO (20:11)
[2024-07-20] MEDS: Enoxaparin 40 MG/0.4 ML SYR SC (20:11)
[2024-07-20] MEDS: traZODone 50 MG TAB PO (20:15)
--- NOTE | 2024-07-20 20:55 | NUR.NOTE ---
During assessment pt c/o increased itching and rash/hives. she rec'd a dose of PO benedryl and hydrocortisone cream at 1700 that was ineffective. when speaking with pt she endorsed worsening of the rash since receiving 1st doses of cipro and flagyl. provider notifed of reaction. his recommendation is IVP benedryl 25mg now, DC cipro and flagyl and restart invanz with the next dose to go back up at 9 am tomorrow.
[2024-07-20] MEDS: diphenhydrAMINE 50 MG/ML VIAL 25 MG IVP (21:05)
[2024-07-21 07:45] VITALS: BP 138/83; PULSE 72; RESP 16; TEMP 35.6; O2SAT 95
[2024-07-21] MEDS: lamoTRIgine 100 MG TAB 200 MG PO (08:34)
[2024-07-21] MEDS: buPROPion-XL 150 MG TABCR PO (08:34)
[2024-07-21] MEDS: Lactobacillus Acidophilus CAP 1 CAP PO (08:34)
[2024-07-21] MEDS: ERTAPENEM 1 GM in Normal Saline 50 ML IVPB (08:36)
[2024-07-21] MEDS: Normal Saline Flush 10 ML SYR IVP (08:37)
--- NOTE | 2024-07-21 08:50 | PDOC.CMPRO ---
Date of service: 07/21/24 Time of Service: 08:51 Care Management Progress Note Discharge Potential Discharge Needs: Surgical F/U Appt Anticipated Barriers to Discharge: Medical Status Patient/Family Education Needs: Review discharge instructions, discuss Ask Me Three Transportation: Private vehicle Plan: Anticipate Billie will be discharged home with no new services when medically cleared. She will follow up with her PCP and plan of care and transport with family. CM will follow and continue to assess for discharge needs. Social Determinants of Health Screening Social Determinants of Health last assessed: 07/21/24 Will the Patient Participate in the Screening?: Yes Do you worry about having a steady place to live?: yes What is your living situation today?: I have housing today, but am worried about losing it Problems where you live: no known problems In the past 12 months, have you had to go without electric, gas, oil or water in your home?: no Have you or anyone in your house had to go without enough food to eat?: no Has lack of transportation kept you from medical appointments or from doing things needed for daily living?: no Has anyone in your life made you feel unsafe or unsupported?: no How hard is it for you to pay for the very basics like food, housing, medical care, and heating? Would you say it is:: Very hard Do you want help finding or keeping work or a job?: I do not need or want help If for any reason you need help with day-to-day activities such as bathing, preparing meals, shopping, managing finances, etc., do you get the help you need?: I don?t need any help How often do you feel lonely or isolated from those around you?: Never Do you speak a language other than Sammarinese at home?: No Does the patient want assistance with any of the above?: No Health Related Social Needs Health related social needs: housing instability, housed, with risk of homelessness (Z59.811) and problems related to housing/economic circumstances (Z59.89)
--- NOTE | 2024-07-21 08:51 | CMDISCH_ITS ---
Date of service: 07/21/24 Time of Service: 08:51 LACE Index Scoring Tool Questions: Length of Stay (in days): 3 Was the patient admitted via the E.D.?: Yes E.D. Visits: 1 Answers: Total Score: 7 Risk of Readmission: Low Risk Care Management Discharge Plan Reason for Hospitalization: diverticulitis Discharge Plan: Anticipate Billie will be discharged home with no new services when medically cleared. She will follow up with her PCP and plan of care and transport with family. Patient/Family Education Needs: review discharge instructions, limitations, follow up plan and discuss Ask Me Three SDOH Health Related Social Needs: Health related social needs housing instability, house d, with risk of homelessness (Z59.811), problems related to housing/economic circumstances (Z59.89)
--- NOTE | 2024-07-21 09:17 | DSE_ITS ---
Date of service: 07/21/24 Time of Service: 12:42 DS: Diagnosis Discharge Diagnosis (1) Diverticulitis: Start date: 07/18/24 Status: Chronic Asessment and Plan: Discharge on slow diet advance, oral antibiotics with Augmentin. A test dose of Augmentin was given in hospital and there was no reaction. Follow-up in the office in 10 days. Discharge Plan Disposition Patient Disposition: Home Condition: Good Discharge Details Reason For Visit: Perforated Diverticulitis Admit Date/Time: 07/18/24 09:29 Admit Provider: Shant Bowen Attending Provider: Shant Bowen Primary Care Provider: WALTER SINGH Hospital Course Hospital Course: Patient was admitted 07/18/2024 with moderate diverticulitis and started on IV Zosyn. Due to development of hives the patient was switched to ertapenem. Another antibiotic switch to Cipro floxacillin and Flagyl (given simultaneously) led to hives. Other than the antibiotic reaction. The patient had progressive improvement in her abdominal symptoms culminating in passing flatus and bowel movements without pain. There is mild abdominal tenderness at the time of discharge. Today, day of discharge, patient is receiving IV ertapenem and a test dose of oral Augmentin. If the patient does not develop a reaction she will be discharged home to start Augmentin 07/22/2024. Home Meds and New Rx's Prescriptions: New diphenhydramine HCl [Banophen] 25 mg Capsule 25 mg PO Q4H PRN PRNQty: 30 0RF Lactobacillus acidophilus 500 million cell Capsule 500 mmu cells PO BID Qty: 30 0RF amoxicillin-pot clavulanate [Augmentin] 500-125 mg tablet 1 tab PO TID Qty: 18 0RF Rx Instructions: start taking in am 07/22/2024 Continued lisinopril 10 mg tablet 10 mg PO HS lorazepam 0.5 mg tablet 0.5 mg PO DAILY PRN trazodone 50 mg tablet 50 mg PO QHS PRN estradiol 0.01 % (0.1 mg/gram) cream 0.25 g vaginal DAILY Qty: 42.5 4RF Rx Instructions: Use 2-3x/week Massage a pea-sized amount around the vaginal opening lamotrigine [Lamictal] 200 mg tablet 200 mg PO DAILY propranolol 10 mg tablet 10 mg PO BID PRN estradiol [Vagifem] 10 mcg tablet 10 mcg vaginal DAILY Qty: 30 5RF Rx Instructions: Take daily x2wks, then decrease to twice weekly. bupropion HCl 150 mg tablet extended release 24 hr 150 mg PO DAILY Patient Comments: TAKE 1 TABLET DAILY Discharge Instructions Additional Instructions: watch for signs of worsening abdominal pain, nausea, vomiting or fever >101F. Call office or return to ER if symptoms persist. The prescribed probiotics and benadryl are OTC meds. You may also take OTC tylenol as needed for discomfort. Referrals: Shant Bowen MD [ [facility] STAFF PHYSICIAN] - None (10 days) Activity:: Activity as Tolerated Equipment/Supplies:: No Equipment Needed Diet:: Low fiber, small frequent meals until feeling better Discharge Orders Discharge Orders: Discharge Order (Routine); Ordered 07/21/24 Ordered By: Jil Valenzuela Discharge Data Discharge Date/Time-TO BE ENTERED AT DEPARTURE: 07/21/24 12:58 DS: Summary Time Spent with Patient providing and/or coordinating discharge services: Less than 30 minutes Status at Discharge Functional status at discharge: independent ambulation Overall status at discharge: patient is progressing back to baseline Mental Status: mental status grossly normal Speech and Movement: speech and movement normal Mood: congruent mood Affect: normal affect Quality:SDOH Health Related Social Needs: Health related social needs housing instability, house d, with risk of homelessness (Z59.811), problems related to housing/economic circumstances (Z59.89) Exam Narrative Exam Narrative: Patient is awake, alert, daughter Samina at bedside who is a nurse practitioner. Const General: cooperative and healthy appearing Orientation: alert HENMT Head: normal to inspection Resp Auscultation: clear to auscultation bilaterally Cardio Rate: regular rate Rhythm: regular rhythm GI Palpation: soft, no guarding and tender (Across suprapubic area) Psych Mental Status: mental status grossly normal Speech and Movement: speech and movement normal Mood: congruent mood Affect: normal affect DS: Data Vitals/I&O Vitals and I&O: Vital Signs Temperature 35.6 C L 07/21/24 07:45 Temperature Source Temporal Artery Scan 07/21/24 07:45 Pulse 72 07/21/24 07:45 Pulse Rhythm Regular 07/18/24 10:37 Respiratory Rate 16 07/21/24 07:45 Respiratory Effort Normal, Non-Labored 07/18/24 10:37 Respiratory Depth Normal 07/18/24 10:37 Respiratory Pattern Normal 07/18/24 10:37 Blood Pressure 138/83 07/21/24 07:45 Blood Pressure Mean 84 07/18/24 10:00 Blood Pressure Position Supine 07/18/24 07:37 Pulse Oximetry 95 07/21/24 07:45 Oxygen Delivery Method Room Air 07/21/24 07:45 Oxygen Flow Rate 0 07/21/24 07:45 Pain Level 0 07/20/24 19:52 Comment Notifying RN 07/19/24 15:33 Intake & Output 07/20/24 07/20/24 07/21/24 11:59 23:59 11:59 Intake Total 1050 / 2197.5 1147.5 / 2197.5 Balance 1050 / 2197.5 1147.5 / 2197.5 Intake: IV 1050 / 1697.5 647.5 / 1697.5 Oral 500 / 500 Other: Urine Color Yellow Yellow Comment pt voided x1 pt voids independently in toilet per pt voided x1 Data Completed and Pending Labs on day of discharge: Preliminary micro results at discharge 07/18/24 09:28 Blood Culture - Preliminary Blood NO GROWTH 48 HOURS 07/18/24 09:20 Blood Culture - Preliminary Blood NO GROWTH [address] scan - abdomen: Lab and Radiology Reports: Laboratory Results WBC 6.35 10^3/uL (4.4-10.8) 07/19/24 06:09 RBC 3.72 10^6/uL (3.93-5.22) L 07/19/24 06:09 Hgb 11.5 g/dL (11.2-15.7) 07/19/24 06:09 Hct 34.2 % (36.0-46.0) L 07/19/24 06:09 MCV 92 fL (80-95) 07/19/24 06:09 MCH 30.9 pg (27.0-33.0) 07/19/24 06:09 MCHC 33.6 % (32.0-36.0) 07/19/24 06:09 RDW 11.6 % (11.7-14.6) L 07/19/24 06:09 Plt Count 242 10^3/uL (130-400) 07/19/24 06:09 MPV 9.3 fL (8.0-11.0) 07/19/24 06:09 Immature Gran % 0.3 % 07/19/24 06:09 Neutrophils % 61.7 % 07/19/24 06:09 Lymphocytes % 20.8 % 07/19/24 06:09 Monocytes % 10.9 % 07/19/24 06:09 Eosinophils % 5.8 % 07/19/24 06:09 Basophils % 0.5 % 07/19/24 06:09 Nucleated RBC % 0.0 % (0.0-0.3) 07/19/24 06:09 Absolute Neutrophils 3.92 10^3/uL (1.2-6.7) 07/19/24 06:09 Absolute Lymphocytes 1.32 10^3/uL (1.2-3.4) 07/19/24 06:09 Absolute Monocytes 0.69 10^3/uL (0.1-0.8) 07/19/24 06:09 Absolute Eosinophils 0.37 10^3/uL (0.0-0.7) 07/19/24 06:09 Absolute Basophils 0.03 10^3/uL (0.0-0.2) 07/19/24 06:09 Sodium 140 mmol/L (136-145) 07/19/24 06:09 Potassium 4.3 mmol/L (3.5-5.1) 07/19/24 06:09 Chloride 106 mmol/L (98-107) 07/19/24 06:09 Carbon Dioxide 30.0 mmol/L (21.0-32.0) 07/19/24 06:09 Anion Gap 4.0 mmol/L (3-11) 07/19/24 06:09 BUN 13 mg/dL (7-18) 07/19/24 06:09 Creatinine 0.9 mg/dL (0.55-1.02) 07/19/24 06:09 Est GFR (CKD-EPI 2020) 72.73 (mL/min/1.73m2) 07/19/24 06:09 Glucose 83 mg/dL (74-106) 07/19/24 06:09 Calcium 8.4 mg/dL (8.5-10.1) L 07/19/24 06:09 Magnesium 1.9 mg/dL (1.8-2.4) 07/18/24 07:50 Total Bilirubin 0.64 mg/dL (0.2-1.0) 07/18/24 07:50 AST 14 U/L (15-37) L 07/18/24 07:50 ALT 19 U/L (14-59) 07/18/24 07:50 Alkaline Phosphatase 105 U/L (46-116) 07/18/24 07:50 Total Protein 7.4 g/dL (6.4-8.2) 07/18/24 07:50 Albumin 3.1 g/dL (3.4-5.0) L 07/18/24 07:50 Lipase 39 U/L (<78) 07/18/24 07:50 Urine Color Yellow (Yellow) 07/18/24 08:10 Urine Clarity Cloudy (Clear) 07/18/24 08:10 Urine pH 8.5 (5-8) H 07/18/24 08:10 Ur Specific Coy 1.020 (1.005-1.025) 07/18/24 08:10 Urine Protein Negative mg/dL (Neg-Trace) 07/18/24 08:10 Urine Ketones Negative mg/dL (Negative) 07/18/24 08:10 Urine Blood Negative (Negative) 07/18/24 08:10 Urine Nitrite Negative (Negative) 07/18/24 08:10 Urine Bilirubin Negative (Negative) 07/18/24 08:10 Urine Urobilinogen 0.2 mg/dL (Up to 0.2) 07/18/24 08:10 Ur Leukocyte Esterase Negative (Negative) 07/18/24 08:10 Urine Glucose Negative mg/dL (Negative) 07/18/24 08:10 COVID-19 Source Nasopharynx 07/18/24 07:40 SARS-CoV-2 (PCR) Negative (Negative) 07/18/24 07:40 Influenza Type A (PCR) Negative (Negative) 07/18/24 07:40 Influenza Type B (PCR) Negative (Negative) 07/18/24 07:40 RSV (PCR) Negative (Negative) 07/18/24 07:40 PFSH All Active Problems Intra-abdominal abscess (Acute) Diverticulitis (Chronic) Medical History Family history of BRCA gene mutation Pt has tested negative Perimenopausal atrophic vaginitis Bipolar 2 disorder Anxiety Depression Surgical History H/O section 1991 History of cholecystectomy H/O tubal ligation Family History Paternal Aunt Breast cancer Father Colon cancer Social History Smoking/Tobacco Use Status: Never Smoking risk assessment performed?: Yes Alcohol Intake: never Drug use: Never Substance use type: does not use Household members: spouse Housing: house Number of Children: 2 Education Level: college 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 Date GA/Weeks # Preg Succ Route Wgt Sex Labor Lgth Anesth esia Location Prov Complic Unknown 40 No Yes 3628.739 g Female [facility], [place] Unknown 40 No Yes 3175.147 g Male [place], [place] Delivery Date: Last Updated by: Divina Alexanderssica Born 1979 Delivery Date: Last Updated by: Divina Webb Antonio Born in 1989 Time Spent with Patient Time Spent with Patient: 45-69 minutes Time was spent: obtaining and/or reviewing separately otained hiistory, ordering medications,tests, procedures, counseling the patient and care coordination
[2024-07-21] MEDS: Amoxicillin 875/Clav. 125 TAB PO (09:56)
[2024-07-21] MEDS: Acetaminophen 500 MG TAB 1000 MG PO (12:21)
[2024-07-21] MEDS: diphenhydrAMINE 25 MG CAP PO (12:32)
== END 2024-07-21 13:35 | disposition home or self-care (01) ==
LOC: ER 09:41 → MS 10:21
PROVIDERS: Admitting Provider Surgery; Emergency Provider Emergency Medicine; PCP Nurse Practitioner Family; Visit Provider Surgery
DX: K57.20 Diverticulitis of large intestine with perforation and abscess without bleeding (principal); K65.1 Peritoneal abscess; F31.81 Bipolar II disorder; Z80.0 Family history of malignant neoplasm of digestive organs; F41.9 Anxiety disorder, unspecified; Z79.899 Other long term (current) drug therapy; Z79.811 Long term (current) use of aromatase inhibitors; Z59.89 Other problems related to housing and economic circumstances
CPT/HCPCS: 36415; 80048; 80053; 83690; 87040; 87637; 96365; 96366; 96367; 96372; 96375; 96376; 99222; 99231; 99233; 99239; 99285; J1650; 71046; 74177; 81003; 83735; 85025; G0378; J0744; J1200; J1335; J1836; J1885; J2405; J2543; J3490

== ENCOUNTER 2024-08-09 01:49 | Outpatient (CLI) | payer BC, SELFPAY ==
--- NOTE | 2024-08-09 08:32 | DI.MAMMO_ITS ---
Exam(s) MAMMO SCREENING EXAM: MAMMO SCREENING CLINICAL HISTORY: screening,z12.31. TECHNIQUE: Bilateral full field digital CC and MLO mammographic images were obtained with 3D tomosyn thesis and utilizing computer aided detection (CAD). COMPARISON: Prior mammograms were reviewed. FINDINGS: There has been no significant change in the appearance and distribution of the fibroglandular tissue. Calcified fibroadenoma right breast well as other noncalcified right breast nodule remains unchanged does a smaller left breast nodule. There are no new spiculated masses nor malignant appearing microcalcification groups. There is no significant architectural distortion nor skin thickening-retraction. IMPRESSION: No radiographic evidence of malignancy. BI-RADS Category 1 - Negative Breast Density - Category A - Almost entirely fatty Breast density Category C or D implies that the patient has dense breast tissue. Dense breast tissue can make it harder to find cancer on a mammogram. Dense breast tissue is also associated with an incr eased risk of breast cancer. This information about the result of the mammogram report was provided to the patient to raise their awareness. Use this report when you speak with the patient about their risks for breast cancer, which includes their family history. At that time, you may recommend additional screening tests (Ultrasoun d or MRI) as these tests may add significant information. A negative radiographic report should not delay biopsy if a dominant or clinically suspicious mass is present. Up to ten percent of cancers are not identified on mammography. A negative report may reinforce clinical impression. Adenosis and dense breasts may obscure an underlying neoplasm. False positive reports average 6 to 10%. Patient will receive a letter notifying them of these results.
== END 2024-08-09 02:09 ==
LOC: DI 01:50
PROVIDERS: PCP Nurse Practitioner Family; Visit Provider Obstetrics & Gynecology
DX: Z12.31 Encounter for screening mammogram for malignant neoplasm of breast (principal); R92.313 Mammographic fatty tissue density, bilateral breasts
CPT/HCPCS: 77063; 77067

== ENCOUNTER 2024-08-16 13:35 | Emergency (ER) | payer BC, SELFPAY ==
[2024-08-16] VITALS (12 sets, daily range): BP systolic 105–152; BP diastolic 58–83; PULSE 70–87; RESP 14; TEMP 37.3; O2SAT 92–97
--- NOTE | 2024-08-16 14:19 | ED.GENADUL_ITS ---
Discharge Plan Disposition Patient Disposition: Home Condition: Stable Discharge Details Clinical Impression: Diverticulitis Primary Care Provider: WALTER SINGH ED Provider: Serafin Vanegas Home Meds and New Rx's Prescriptions: New amoxicillin-pot clavulanate 875-125 mg tablet 1 tab PO BID Qty: 19 0RF Continued lisinopril 10 mg tablet 10 mg PO HS lorazepam 0.5 mg tablet 0.5 mg PO DAILY PRN trazodone 50 mg tablet 50 mg PO QHS PRN estradiol 0.01 % (0.1 mg/gram) cream 0.25 g vaginal DAILY Qty: 42.5 4RF Rx Instructions: Use 2-3x/week Massage a pea-sized amount around the vaginal opening lamotrigine [Lamictal] 200 mg tablet 200 mg PO DAILY propranolol 10 mg tablet 10 mg PO BID PRN estradiol [Vagifem] 10 mcg tablet 10 mcg vaginal DAILY Qty: 30 5RF Rx Instructions: Take daily x2wks, then decrease to twice weekly. bupropion HCl 150 mg tablet extended release 24 hr 150 mg PO DAILY Patient Comments: TAKE 1 TABLET DAILY Lactobacillus acidophilus 500 million cell Capsule 500 mmu cells PO BID Qty: 30 0RF Discharge Instructions Additional Instructions: Your CAT scan showed significant improvement compared to the prior CT. You do have a mild amount of inflammation so we are restarting you on the antibiotic. Follow-up as scheduled with your surgeon. If you feel more ill, have severe wor sening pain or high fevers return to the emergency department for reevaluation HPI General Mode of arrival: ambulatory . Date/Time Provider Initiated Documentation: 08/16/24 13:46 . Limitations to Documentation: no limitations . Information obtained by: patient . History of Present Illness 63 year old F presents to the emergency department with the chief complaint of lower abdominal pain, described as moderate, Quality is described as sharp, and is localized to the abdomen. Patient reports no radiation. Patient started experiencing this hour(s) (12) and it has been constant. No relieving factors improve symptom(s), No exacerbating factors reported . Patient notes denies chest pain and shortness of breath. Patient did receive the following treatments prior to arrival, none Related Data Home Medications ?Medication ?Instructions ?Recorded ?Confirmed lamotrigine 200 mg tablet 200 mg PO DAILY 07/02/22 08/16/24 (Lamictal) estradiol 10 mcg vaginal tablet 10 mcg vaginal DAILY #30 tabs 07/09/23 08/16/24 (Vagifem) estradiol 0.01% (0.1 mg/gram) 0.25 g vaginal DAILY #42.5 grams 08/11/23 08/16/24 vaginal cream lisinopril 10 mg tablet 10 mg PO HS 08/11/23 08/16/24 lorazepam 0.5 mg tablet 0.5 mg PO DAILY PRN 08/11/23 08/16/24 trazodone 50 mg tablet 50 mg PO QHS PRN 08/11/23 08/16/24 propranolol 10 mg tablet 10 mg PO BID PRN 05/24/24 08/16/24 bupropion HCl 150 mg 24 hr tablet, 150 mg PO DAILY 07/18/24 08/16/24 extended release Lactobacillus acidophilus 500 500 mmu cells PO BID #30 caps 07/21/24 08/16/24 million cell capsule amoxicillin 875 mg-potassium 1 tab PO BID #19 tabs 08/16/24 clavulanate 125 mg tablet Previous Rx's ?Medication ?Instructions ?Recorded estradiol 10 mcg vaginal tablet 10 mcg vaginal DAILY #30 tabs 07/09/23 (Vagifem) estradiol 0.01% (0.1 mg/gram) 0.25 g vaginal DAILY #42.5 grams 08/11/23 vaginal cream Lactobacillus acidophilus 500 500 mmu cells PO BID #30 caps 07/21/24 million cell capsule amoxicillin 875 mg-potassium 1 tab PO BID #19 tabs 08/16/24 clavulanate 125 mg tablet Allergies Allergy/AdvReac Type Severity Reaction Status Date / Time piperacillin (From Zosyn) Allergy Mild hives Verified 08/16/24 13:40 tazobactam (From Zosyn) Allergy Mild hives Verified 08/16/24 13:40 General Stated Complaint: Abd Prob JUNIOR: 3 Review of Systems All systems reviewed & are unremarkable except as noted in HPI and below Constitutional Constitutional: Reports chills, Denies fever(s) and Denies weakness Cardiovascular Cardiovascular: Denies chest pain and Denies dyspnea Respiratory Respiratory: Denies cough and Denies dyspnea Gastrointestinal Gastrointestinal: Reports abdominal pain, Reports nausea and Denies vomiting Neurologic Neurologic: Denies weakness Psychiatric Psychiatric: Denies depression Exam Const General: no acute distress Orientation: alert HENMT Head: normal to inspection Ears: external ears normal General nose exam: external nose normal Mouth: moist mucous membranes Eyes General: appearance normal, both eyes and all related structures Neck Neck: normal visual inspection Resp Effort & Inspection: normal respiratory effort and able to speak in complete sentences Cardio Rate: regular rate GI Palpation: soft and tender Skin General skin exam: no rashes or lesions noted Neuro General: patient alert and patient oriented x3 Extrem General: normal to inspection Psych Mental Status: mental status grossly normal Course Vital Signs Vital signs: Vital Signs Temperature 37.3 C 08/16/24 13:36 Pulse 87 08/16/24 13:36 Respiratory Rate 14 08/16/24 13:36 Blood Pressure 141/83 H 08/16/24 13:36 Pulse Oximetry 95 08/16/24 13:36 Temperature 37.3 C 08/16/24 13:36 Temperature Source Oral 08/16/24 13:36 Pulse 87 08/16/24 13:36 Respiratory Rate 14 08/16/24 13:36 Blood Pressure 141/83 H 08/16/24 13:36 Blood Pressure Position Sitting 08/16/24 13:36 Pulse Oximetry 95 08/16/24 13:36 Oxygen Delivery Method Room Air 08/16/24 13:36 Oxygen Flow Rate 0 08/16/24 13:36 Pain Level 4 08/16/24 13:36 Medical Decision Making 63-year-old female who was recently admitted for diverticulitis with an abscess and was discharged on Augmentin which she finished a few weeks ago comes in with 12 hours of lower abdominal pain and chills similar to when she was diagnosed with diverticulitis with abscess. She denies any vomiting though has nausea. No fevers. She is stable on arrival, her abdomen is soft and nondistended. She does have tenderness in the right lower quadrant and left lower quadrant without guarding. Concern for recurrent diverticulitis versus abscess, will obtain CBC, CMP inflammatory markers and CT abdomen pelvis to further evaluate Patient stable, CT shows significant proving from prior CT, no evidence of abscess or free fluid or free air. Still has some perisigmoid fat speaking. Given reassuring workup I feel she is stable for discharge. She apparently is going to be seeing a specialist at [facility] for possible bowel resection. Return precautions given IMPRESSION: 1. Compared to the prior CT scan of 07/18/2024 there has been significant improvement in the appearance of the sigmoid diverticulitis. There is less perisigmoid fat streaking and there is no evidence of abscess nor free fluid nor free air. There is also no gas in the adjacent urinary bladder lumen to sugg est fistulous communication. 2. No evidence of appendicitis. Differential Diagnosis Differential Diagnosis: Diverticulitis, cystitis Quality:SDOH Health Related Social Needs: Health related social needs housing instability, house d, with risk of homelessness (Z59.811), problems related to housing/economic circumstances (Z59.89) PFSH All Active Problems (Updated 08/16/24 @ 16:28 by Serafin Vanegas MD) Diverticulitis (Chronic) Medical History Family history of BRCA gene mutation Pt has tested negative Perimenopausal atrophic vaginitis Bipolar 2 disorder Anxiety Depression Surgical History H/O section 1991 History of cholecystectomy H/O tubal ligation Family History Paternal Aunt Breast cancer Father Colon cancer Social History Smoking/Tobacco Use Status: Never Smoking risk assessment performed?: Yes Alcohol Intake: never Drug use: Never Substance use type: does not use Household members: spouse Housing: house Number of Children: 2 Education Level: college 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 Date GA/Weeks # Preg Succ Route Wgt Sex Labor Lgth Anesth esia Location Prov Complic Unknown 40 No Yes 3628.739 g Female [place], [place] Unknown 40 No Yes 3175.147 g Male [place], [place] Delivery Date: Last Updated by: Divina Webb Samina Born 1979 Delivery Date: Last Updated by: Divina Webb Antonio Born in 1989
[2024-08-16] MEDS: Ketorolac 15 MG/ML VIAL IVP (14:36)
[2024-08-16 14:47] LABS: Abs Immature Grans 0.03 10^3/uL (0.0-0.06); Absolute Basophil Count 0.04 10^3/uL (0.0-0.2); Absolute Eosinophil Count 0.37 10^3/uL (0.0-0.7); Absolute Lymphocyte Count 1.55 10^3/uL (1.2-3.4); Absolute Monocyte Count 0.86 10^3/uL (0.1-0.8); Absolute Neutrophil Count 7.41 10^3/uL (1.2-6.7); Basophils % 0.4 %; Eosinophils % 3.6 %; HCT 40.8 % (36.0-46.0); HGB 13.5 g/dL (11.2-15.7); Immature Grans % 0.3 %; Lymphocytes % 15.1 %; MCHC 33.1 % (32.0-36.0); MCV 91 fL (80-95); MPV 9.2 fL (8.0-11.0); Monocytes % 8.4 %; Neutrophils % 72.2 %; Platelet Count 281 10^3/uL (130-400); RDW 11.7 % (11.7-14.6); RDW-SD 38.6 fL; WBC 10.26 10^3/uL (4.4-10.8)
[2024-08-16 14:49] LABS: ESR 16 mm/hr (0-30)
[2024-08-16 14:59] LABS: Bilirubin Negative (Negative); Blood Negative (Negative); Clarity Clear (Clear); Glucose Negative (Negative); Ketones Negative (Negative); Leukocyte Esterase Negative (Negative); Nitrite Negative (Negative); Urobilinogen 0.2 mg/dL (Up to 0.2)
[2024-08-16 15:03] LABS: ALT 23 U/L (14-59); AST 15 U/L (15-37); Albumin 3.8 g/dL (3.4-5.0); Alkaline Phosphatase 109 U/L (46-116); Anion Gap 4.4 mmol/L (3-11); BUN 11 mg/dL (7-18); Bilirubin, Total 0.67 mg/dL (0.2-1.0); C-Reactive Protein 1.47 mg/dL (<or=0.5); CO2 30.6 mmol/L (21.0-32.0); CREATININE 0.9 mg/dL (0.55-1.02); Calcium 9.2 mg/dL (8.5-10.1); Chloride 103 mmol/L (98-107); Estimated GFR 72.73 (mL/min/1.73m2); Glucose 87 mg/dL (74-106); Lipase 21 U/L (<78); Magnesium 1.7 mg/dL (1.8-2.4); Potassium 3.8 mmol/L (3.5-5.1); Sodium 138 mmol/L (136-145); Total Protein 7.8 g/dL (6.4-8.2)
[2024-08-16 15:16] LABS: COVID-19 PCR Negative (Negative); Influenza A PCR Negative (Negative); Influenza B PCR Negative (Negative); RSV PCR Negative (Negative)
[2024-08-16 15:18] LABS: Source Nasopharynx
[2024-08-16 15:40] LABS: Procalcitonin < 0.10 ng/mL
[2024-08-16] MEDS: Omnipaque 350 MG/ML 100 ML BTL IJ (15:41)
[2024-08-16] MEDS: Normal Saline - Diluent 50 ML VIAL IJ (15:42)
--- NOTE | 2024-08-16 15:42 | DI.CT_ITS ---
Exam(s) CT ABDOMEN PELVIS W EXAM: CT ABDOMEN PELVIS W CLINICAL HISTORY: lower abdominal pain, recent diverticulitis/absces. TECHNIQUE: Imaging Protocol: Axial computed tomography images with coronal and sagittal reformatted images were created and reviewed CONTRAST MATERIAL: Intravenous: Omnipaque-350 100cc Oral: None COMPARISON: CT CT ABDOMEN PELVIS W from 07/18/2024 FINDINGS: VISUALIZED LUNG BASES: No nodules nor pleural effusions evident. ABDOMEN: There is no ascites. LIVER: There are no focal hepatic lesions evident. No dilated intrahepatic ducts. GALLBLADDER/BILIARY: The gallbladder is again noted be surgically absent. CBD is not dilated. PANCREAS: No evidence of pancreatic mass nor dilatation of the pancreatic duct. SPLEEN: Spleen is not enlarged. No obvious intrasplenic lesions. Splenic and portal veins are paten t. ADRENALS: There are no significant adrenal masses. KIDNEYS:No cysts evident. No solid renal masses. No calculi nor hydronephrosis.. ABDOMINAL AORTA: Abdominal aorta is not enlarged. LYMPH NODES:There is no retroperitoneal nor paraaortic adenopathy. ABDOMINAL WALL: No evidence of significant anterior abdominal wall nor inguinal hernia. GI: There is no evidence of bowel obstruction. PELVIS: GI: No evidence of appendicitis.There has been improvement in the appearance of the sigmoid diverticu litis when compared to the CT scan of 1 month ago. There is still some mild perisigmoid streaking bu t less evident than previous and there is no evidence of abscess. There is no free fluid in the pelv is. There is no gas within the bladder lumen to suggest fistulous communication. No gas in the port al venous system. LYMPH NODES: There is no intrapelvic nor inguinal adenopathy. REPRODUCTIVE: There is an enhancing fibroid in the left side of the myometrium near the fundus. No a bnormal adnexal masses. Ovaries appear unremarkable. URINARY BLADDER: No calculi nor obvious masses evident OSSEOUS: No fractures and no significant osseous lesions. IMPRESSION: 1. Compared to the prior CT scan of 07/18/2024 there has been significant improvement in the appearan ce of the sigmoid diverticulitis. There is less perisigmoid fat streaking and there is no evidence o f abscess nor free fluid nor free air. There is also no gas in the adjacent urinary bladder lumen to suggest fistulous communication. 2. No evidence of appendicitis. Report called by myself to ER physician 08/16/2024 at 4:02 p.m. RADIATION DOSE DELIVERED: 508.71mGy.cm Total DLP DATA REPOSITORY: All CT scans at this facility are submitted to the National Radiology Data Registry (NRDR) Dose Index Registry (DIR) with the [employer] ([employer]). RADIATION OPTIMIZATION: All CT scans at this facility use at least one of these dose optimization te chniques: automated exposure control; mA and/or kV adjustment per patient size (includes targeted exa ms where dose is matched to clinical indication); or iterative reconstruction.
[2024-08-16] MEDS: Amoxicillin 875/Clav. 125 TAB PO (16:30)
== END 2024-08-16 16:50 | disposition home or self-care (01) ==
PROVIDERS: Emergency Provider Emergency Medicine; PCP Nurse Practitioner Family
DX: K57.92 Diverticulitis of intestine, part unspecified, without perforation or abscess without bleeding (principal); R10.30 Lower abdominal pain, unspecified; Z59.811 Housing instability, housed, with risk of homelessness; Z59.89 Other problems related to housing and economic circumstances
CPT/HCPCS: 80053; 83690; 84145; 85652; 87637; 96374; 99285; 74177; 81003; 83735; 85025; 86140; 99284; J1885; J3490